=== PATIENT | male | born 1935 | race Caucasian/White ===

== ENCOUNTER 2016-05-31 16:53 | Emergency (ER) | payer OTHER ==
--- NOTE | 2016-05-31 18:03 | DIAGNOSTIC IMAGING REPORT ---
PROCEDURE: XR CHEST 1 VIEW INDICATION: ABDOMINAL PAIN TECHNIQUE: Portable AP view 05:30 p.m. COMPARISON: None available FINDINGS: Lungs are clear. Mild cardiomegaly. Pulmonary vasculature is normal. Previous sternotomy and cardiac surgery. IMPRESSION: 1. Mild cardiomegaly. Lungs clear.
--- NOTE | 2016-05-31 19:39 | DIAGNOSTIC IMAGING REPORT ---
PROCEDURE: CT ABD/PELVIS WITH CONTRAST CLINICAL INDICATION: Mid abdominal pain, initial encounter TECHNIQUE: 94 ml of Isovue 300 were injected intravenously and axial images were obtained of the entire abdomen and pelvis with sagittal and coronal reformations. COMPARISON: None. FINDINGS: ABDOMEN: Mild subpleural fibrosis in both lung bases. Sternotomy. Mild cardiomegaly. Pneumobilia and air in the gallbladder, likely from a recent ERCP. There are biliary and pancreatic stents in place. Dilated pancreatic duct measures 6 mm. Liver, pancreas, spleen and adrenal glands are normal. Bilateral renal cysts. Severe atherosclerosis of the aorta with a 3.2 cm infrarenal abdominal aortic aneurysm. Moderate stool. Thickening of the gastric wall. PELVIS: Normal appendix. Enlarged prostate (6 cm). Penile device in place. 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 Trace free fluid in the pelvis. No inflammatory changes. L3 and L5 laminectomies with bony fusion of the posterior elements. Severe degenerative changes of the spine. IMPRESSION: 1. Biliary and pancreatic duct stents 2. Pneumobilia and gallbladder air, likely from a recent ERCP 3. Gastric wall thickening. Consider gastritis. 4. 3.2 cm infrarenal abdominal aortic aneurysm 5. Trace free fluid the pelvis, etiology uncertain 6. Results discussed with Dr. Wheeler All CT scans at this facility use dose modulation, iterative reconstruction, and/or weight-based dosing when appropriate to reduce radiation dose to as low as reasonably achievable.
--- NOTE | 2016-05-31 20:39 | ED ORDER SUMMARY ---
..... Patient: VAL PEARCE OrderSheet [facility] VisitID: [id number] [address] [place] [address] 81y, M Registration Date/Time: 05/31/2016 ORDER SHEET Weight: 79.3 kg (stated) Allergies: Gabapentin, Nortriptyline GENERAL ORDERS: Chest 1V Urgent (17:05/31/2016 Tangela PETERSON) (Ack 17:30 Joe) (17:59 RCollier R.N.) Director Of Web Marketing (Continuous) (17:05/31/2016 Tangela PETERSON) (Ack 17:32 RCollier R.N.) (17:43 RCollier R.N.) CBC w Diff Urgent (:05/31/2016 Tangela PETERSON) (Ack 17:30 Joe) (17:58 RCollier R.N.) CMP Urgent (17:05/31/2016 Tangela PETERSON) (Ack 17:30 Joe) (17:58 RCollier R.N.) UA-Culture if indicated Urgent (17:05/31/2016 Tangela PETERSON) (Ack 17:30 Joe) (19:54 Deangelo R.N.) Amylase Urgent (17:05/31/2016 Tangela PETERSON) (Ack 17:30 Joe) (17:58 RCollier R.N.) Lipase Urgent (17:05/31/2016 Tangela PETERSON) (Ack 17:30 Joe) (17:58 RCollier R.N.) CPK Urgent (17:05/31/2016 Tangela PETERSON) (Ack 17:30 Joe) (17:58 RCollier R.N.) Troponin-I Urgent (:05/31/2016 Tangela PETERSON) (Ack 17:30 Joe) (17:59 RCollier R.N.) Pulse oximeter (:05/31/2016 Tangela PETERSON) (Ack 17:32 RCollier R.N.) (17:42 RCollier R.N.) EKG - ER Stat (:05/31/2016 Tangela PETERSON) (17:58 Riccardoier R.N.) Type & Screen Urgent (17:54 05/31/2016 Tangela PETERSON) (Ack 18:01 Joe) (18:13 RCollier R.N.) PT with INR Urgent (17:54 05/31/2016 Tangela PETERSON) (Ack 18:01 Joe) (18:13 RCollier R.N.) PTT Urgent (17:54 05/31/2016 Tangela PETERSON) (Ack 18:01 Joe) (18:13 BEEollier R.N.) CT Abd/Pel w Cont (Yes) (See report) (GI requests that we look for a retroperitoneal perforation) Urgent (18:56 05/31/2016 Tangela PETERSON) (Ack 19:13 AMcQuoid ER Tech1) (19:19 AMcQuoid ER Tech1) MEDICATION ORDERS: IV FLUIDS: IV Saline Lock (17:23 05/31/2016 Tangela PETERSON) (Ack 17:31 RCollier R.N.) IV Saline Lock (2 large bore IV sites) (17:53 05/31/2016 Tangela PETERSON) (Ack 17:58 RCollier R.N.) IV NS : initial bolus 500 mL (1000 mL/hr), then 125 mL/hr for 4h (NOW); Urgent (18:55 05/31/2016 Tangela PETERSON) (Ack 19:01 RCollier R.N.) (19:24 RCollier R.N.) ORDER SHEET NOTES: [Electronically signed by Belkys Laird R.N. (20:58 05/31/2016)] [Electronically signed by Nirav Wheeler MD (21:09 05/31/2016)] [Electronically locked/signed by Belkys Laird R.N. (20:58 05/31/2016)]
--- NOTE | 2016-05-31 20:39 | ED CLINICAL REPORT ---
Clinical Report - Physicians/Mid Levels [facility] [address] [place] [address] 05/31/2016 16:54 Patient: VAL PEARCE Time Seen: 17:07. Arrived- By private vehicle. Historian- patient. HISTORY OF PRESENT ILLNESS Chief Complaint: ABDOMINAL PAIN. At its maximum, severity described as 7 / 10. When seen in the E.D., severity described as 5 / 10. Modifying factors- worsened by food. Not relieved by anything. It is described as sharp and it is described as located in the upper abdomen and radiating to the upper back. This started 2 days ago - about 1 hour after his ERCP was completed and is still present. It was abrupt in onset and has been constant and waxing/waning. No nausea, loss of appetite, vomiting or diarrhea. (The patient underwent ERCP Saturday (2 days ago.) He underwent ampulectomy and had placement of pancreatic duct and common bile duct stents.). Similar symptoms previously: None. REVIEW OF SYSTEMS No chills, fever, sweats, calf pain or chest pain. No cough, difficulty breathing, palpitations, black stools or bloody stools. No constipation, diarrhea, nausea, vomiting or urinary problems. The patient has had pedal edema involving the right and left leg (chronically). It has been similar to previous symptoms. His reports that his most recent hemoglobin was 9.8. All systems otherwise negative, except as recorded above. PAST HISTORY [facility] [place] [facility] [place] Problems: Anemia. SVT. Palpitations. Cardiac stent. Hyperglycemia. Pancreatitis. Diabetes Mellitus. Hypertension. Gout. Back Pain. Additional Surgeries: Coronary Angioplasty. Coronary Artery Bypass Graft. ERCP. Medications: Latanoprost Ophthalmic (Solution 0.005 %). Tramadol HCL Oral 50 mg, as needed. Glucosamine Chondroitin Complx Oral 1 tablet, 2x daily. Flaxseed Oil Oral (Capsule 1200 mg) 1 capsule, daily. Senna Lax Oral (Tablet 8.6 mg) 1 tablet, 2x daily. PreserVision AREDS Oral 1 caplet, 2x daily. Creon Oral (Capsule Delayed Release Particles 6000 unit) 4 capsules, daily. TERAZOSIN HCl Oral. Acetaminophen Oral. Allopurinol Oral. AmLODIPine Besylate Oral. Aspirin Low Dose Oral. Atorvastatin Calcium Oral. Satya Mag Zinc +D3 Oral. Fish Oil Oral. Hydrocodone-Acetaminophen Oral. Lisinopril Oral. Magnesium Oral. MetFORMIN HCl Oral. Methocarbamol Oral. Multiple Vitamins Oral. Omeprazole Oral. Allergies: Gabapentin. Nortriptyline. SOCIAL HISTORY Smoker- current status unknown. No alcohol use. Is a local resident. He lives with spouse. Has good social support. FAMILY HISTORY Stroke in first-degree relative (mother). father due to a PE. ADDITIONAL NOTES The nursing notes have been reviewed. PHYSICAL EXAM Vital Signs: 05/31/2016 17:08 BP: 139/73. HR: 69. RR: 18. O2 saturation: 96%. Temp: 97.9 F. Pain level now: 7/10. Have been reviewed. Appearance: Alert. Eyes: Pupils equal, round and reactive to light. ENT: Pharynx normal. Neck: Normal inspection. Neck supple. CVS: 2/6 systolic murmur. Respiratory: No respiratory distress. Breath sounds normal. Abdomen: Soft. Mild tenderness in the upper abdomen. Bowel sounds normal. No organomegaly. No mass. Back: Normal inspection. No CVA tenderness. Skin: Skin warm and dry. Normal skin color. No rash. Normal skin turgor. Extremities: Bilateral mild pitting edema of the lower extremities. Extremities exhibit normal ROM. No calf tenderness. LABS, X-RAYS, AND EKG EKG: Rate: 67. First-degree atrioventricular block. RBBB. Q waves in lead V1 and V2. Left axis deviation. EKG unchanged when compared with prior EKG. (24 October 2015). The study has been independently viewed by me. Chest X-ray: (IMPRESSION: 1. Mild cardiomegaly. Lungs clear.). The X-rays were interpreted by the radiologist and contemporaneously by me. Abdominal CT: IMPRESSION: 1. Biliary and pancreatic duct stents 2. Pneumobilia and gallbladder air, likely from a recent ERCP 3. Gastric wall thickening. Consider gastritis. 4. 3.2 cm infrarenal abdominal aortic aneurysm 5. Trace free fluid the pelvis, etiology uncertain. The study was interpreted contemporaneously by me and discussed with the radiologist. Laboratory Tests: CBC w Diff: (SOL: 05/31/2016 17:39) ( [facility] [place] 05/31/2016 17:48) Final results Test Result Flag Units (Reference) WHITE BLOOD COUNT 7.5 K/uL (4.5-11.5) RED BLOOD COUNT 2.96 L M/uL (4.50-5.90) HEMOGLOBIN 9.5 L gm/dL (13.5-17.5) HEMATOCRIT 28.0 L % (41.0-53.0) MEAN CELL VOLUME 95 fL (80-100) MEAN CORPUSCULAR HGB 32 pg (26-34) MEAN CORPUSCULAR HGB CONC 34 g/dL (31-37) RED CELL DISTRIBUTION WIDTH 14.4 % (11.6-14.8) PLATELET COUNT 120 L K/uL (150-400) NEUTROPHIL % 74.5 % (50-75) LYMPH % 14.7 L % (25-40) MONO % 8.2 % (3-14) EOSINOPHIL % 2.3 % (0-4) BASOPHIL % 0.3 % (0-2) PT with INR: (SOL: 05/31/2016 17:39) ( [facility] [place] 05/31/2016 18:05) Final results Test Result Flag Units (Reference) INR 1.0 (0.8-1.2) Low Intensity Therapy: INR 1.5-2.0 PT range 18.5-23.1Mod.Intensity Therapy: INR 2.0-3.0 PT range 23.1-31.5High Intensity Therapy: INR 2.5-3.5 PT range 27.4-35.5High Intensity Therapy 2: INR 3.0-4.0 PT range 31.5-39.3 APTT 39 H SECONDS (24-34) CMP: (SOL: 05/31/2016 17:39) ( [facility] [place] 18:03) Final results Test Result Flag Units (Reference) GLUCOSE 129 H mg/dL (70-110) BUN 19 H mg/dL (7-18) CREATININE 1.1 mg/dL (0.6-1.3) Estimated GFR >60 mL/min Estimated GFR- >60 mL/min Note: Persistent reduction over 3 months in eGFR<60 mL/min/1.73 m2 defines CKD. Patients with eGFR values>=60 mL/min/1.73 m2 may also have CKD if evidence ofpersistent proteinuria. Additional information may be foundat www.kidney.org. SODIUM 142 mmol/L (136-145) POTASSIUM 4.1 mmol/L (3.5-5.1) CHLORIDE 107 mmol/L (98-107) CARBON DIOXIDE 26 mmol/L (21-32) CALCIUM 8.4 L mg/dL (8.5-10.1) TOTAL PROTEIN 6.5 g/dL (6.4-8.2) ALBUMIN 2.8 L g/dL (3.3-5.0) BILIRUBIN, TOTAL 0.4 mg/dL (0.0-1.0) ALKALINE PHOSPHATASE 62 U/L (46-116) AST (SGOT) 17 U/L (15-37) ALT (SGPT) 20 U/L (12-78) LIPASE 107 U/L (73-393) AMYLASE 74 U/L (25-115) CPK 57 U/L (24-260) TROPONIN I <0.05 ng/mL (0.00-1.5) TROPONIN REFERENCE RANGE:<0.1 NEGATIVE0.1-1.5 INDETERMINANT>1.5 POSITIVE Type & Screen: (SOL: 05/31/2016 18:07) ( MsgRcvd 05/31/2016 18:48) Final results Test Result Flag Units (Reference) PATIENT BLOOD TYPE B Positive ANTIBODY SCREEN NEGATIVE . PROGRESS AND PROCEDURES Course of Care: Patient is stable. Consult obtained from gastroenterology. Dr. Medina at the [facility] [place]. Case discussed. Phone consult only. Will see patient in the office. Patient/family counseled. Old medical records reviewed. Disposition: Discharged. Condition: stable. CLINICAL IMPRESSION Chronic anemia. Abdominal pain. Possible acute pancreatitis (subclinicalstatus post recent ERCP). INSTRUCTIONS No driving or operating machinery while taking medication. Drink plenty of fluids. Avoid alcohol and NSAIDS. NSAIDS include aspirin, ibuprofen (Advil) and naproxen (Aleve). Avoid fatty, fried/greasy, salty and spicy foods. Take clear liquids only Drink plenty of fluids. (Follow up with the floriculture teacher for your anemia as arranged by her primary care doctor as discussed). Warnings: Further evaluation is necessary. GENERAL WARNINGS: Return or contact your physician immediately if your condition worsens or changes unexpectedly, if not improving as expected, or if other problems arise. Your Current Medications: CONTINUE TAKING THE FOLLOWING MEDICATIONS: Acetaminophen Oral. Allopurinol Oral. AmLODIPine Besylate Oral. Aspirin Low Dose Oral. Atorvastatin Calcium Oral. Satya Mag Zinc +D3 Oral. Creon Oral : Capsule Delayed Release Particles 6000 unit, 4 capsules daily. Fish Oil Oral. Glucosamine Chondroitin Complx Oral : 1 tablet 2x daily. Hydrocodone-Acetaminophen Oral. Latanoprost Ophthalmic : Solution 0.005 %. Lisinopril Oral. Magnesium Oral. MetFORMIN HCl Oral. Methocarbamol Oral. Multiple Vitamins Oral. Omeprazole Oral. PreserVision AREDS Oral : 1 caplet 2x daily. Senna Lax Oral : Tablet 8.6 mg, 1 tablet 2x daily. TERAZOSIN HCl Oral. Tramadol HCL Oral : 50 mg, prn. Prescription Medications: Hydrocodone/APAP 5mg/325mg: take 1 to 2 orally every 6 hours as needed for pain. Dispense fifteen (15). No refills. Follow-up: Follow up with a receptionist/telephone operator call Dr. Medina's office tomorrow morning at [phone]. Ask to speak with her nurse and let them know how you are feeling. Schedule the first available follow-up appointment with them. tomorrow. Understanding of the discharge instructions verbalized by patient. (Electronically signed by Nirav Wheeler MD 05/31/2016 21:09)
--- NOTE | 2016-05-31 20:39 | ED NURSING NOTES ---
Clinical Report - Nurses [facility] [address] [place] [address] 05/31/2016 16:54 Patient: VAL PEARCE TRIAGE Triage time 1708. Acuity: LEVEL 3. Chief Complaint: ABDOMINAL PAIN. TALIB COMA SCORE: [place] Coma Scale: 15- eyes open spontaneously (4); best verbal response- oriented x 4 (5); best motor response- obeys commands (6). --17:15 Leann Márquez R.N. 17:08 05/31/16. BP: 139/73. HR: 69. RR: 18 (unlabored). O2 saturation: 96% on room air. Temp: 97.9 F (oral). Pain level now: 10/22. --17:15 Leann Márquez R.N. Weight: 79.3 kg stated. Height/Length: 74 inches Per Patient. BMI: 22.5. --17:08 Leann Márquez R.N. Medications Acetaminophen Oral. Allopurinol Oral. AmLODIPine Besylate Oral. Aspirin Low Dose Oral. Atorvastatin Calcium Oral. Satya Mag Zinc +D3 Oral. Fish Oil Oral. Hydrocodone-Acetaminophen Oral. Lisinopril Oral. Magnesium Oral. MetFORMIN HCl Oral. Methocarbamol Oral. Multiple Vitamins Oral. Omeprazole Oral. --17:14 Leann Márquez R.N. TERAZOSIN HCl Oral. --17:14 Leann Márquez R.N. Creon Oral (Capsule Delayed Release Particles 6000 unit) 4 capsules, daily. --17:28 Belkys Laird R.N. PreserVision AREDS Oral 1 caplet, 2x daily. --17:29 Belkys Laird R.N. Senna Lax Oral (Tablet 8.6 mg) 1 tablet, 2x daily. --17:29 Belkys Laird R.N. Flaxseed Oil Oral (Capsule 1200 mg) 1 capsule, daily. --17:30 Belkys Laird R.N. Glucosamine Chondroitin Complx Oral 1 tablet, 2x daily. --17:30 Belkys Laird R.N. Tramadol HCL Oral 50 mg, as needed. --17:30 Belkys Laird R.N. Latanoprost Ophthalmic (Solution 0.005 %). --17:31 Belkys Laird R.N. Allergies Gabapentin. Nortriptyline. --17:13 Leann Márquez R.N. Medication/allergy information source: the patient. --17:15 Leann Márquez R.N. History Arrived by private vehicle. Historian: patient. Accompanied by family. Primary physician (Dr. Medina). ( pt c/o intermittent abdominal pain since Saturday after his ERCP. pt had c/o nausea, but not at this time.). Onset. (2 days ago). 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 SOCIAL HX: Never smoker. No alcohol use or drug use. ABUSE ASSESSMENT: No report of abuse. FALL RISK ASSESSMENT: Fall risk assessment completed. No fall risk identified. NUTRITIONAL RISK ASSESSMENT: The nutritional risk assessment revealed no deficiencies. FUNCTIONAL ASSESSMENT: Functional assessment: no impairments noted. LEARNING NEEDS ASSESSMENT: The learning needs assessment revealed no barriers. SKIN INTEGRITY ASSESSMENT: Skin integrity risk assessment completed. No skin integrity risk identified. --17:15 Leann Márquez R.N. PROBLEMS: Palpitations. Cardiac stent. Hyperglycemia. Diabetes Mellitus. Hypertension. Gout. Back Pain. --17:14 Leann Márquez R.N. SVT. --17:18 Blekys Laird R.N. Pancreatitis [RuleOut]. --20:34 Nirav Wheeler MD The following entry was modified by Nirav Wheeler MD, 20:34 <<STRICKEN ENTRY-- Pancreatitis. --18:11 Leann Márquez R.N. --END STRIKE>>. ADDITIONAL SURGERIES: Coronary Angioplasty. Coronary Artery Bypass Graft. ERCP. --17:14 Leann Márquez R.N. Interventions ID band on patient. To treatment room. --17:15 Leann Márquez R.N. NURSING PROGRESS NOTES Patient gowned. Head of bed elevated. Two patient identifiers checked. Call light placed in reach. Side rails up x 1. Bed placed in lowest position. Brakes of bed on. Patient ready for evaluation. --17:15 Leann Márquez R.N. Care transferred and report received. --17:28 Belkys Laird R.N. 17:42 05/31/2016 Site #1 started via IV in the right antecubital space with an 20g angiocath, with aseptic technique and good blood return; one attempt. Blood drawn: rainbow set. Labeled in the presence of the patient and sent to the lab. Saline lock flushed with 10 mL saline. --17:42 Belkys Laird R.N. 18:07 05/31/2016 Site #2 started via IV in the left antecubital space with an 18g angiocath, with aseptic technique and good blood return; one attempt. Blood drawn. Labeled in the presence of the patient and sent to the lab. Saline lock flushed with 10 mL saline (blood band placed on pt, blood labeled per protocol. red & lavender tubes drawn at time of IV start.). --18:12 Belkys Laird R.N. EKG time: (17:50). EKG was performed by a tech and shown to the ED physician. --18:32 Macrina Avila 19:22 05/31/2016 Started bag #1 1000 mL IV Fluids IV NS (Saline); bolus of 500 mL over 30 minute(s) then at 125 mL/hr via site #1 via IV pump. Allergies verified and confirmed 5 rights. IV patency established. IV site checked: no pain, redness, or swelling. IV flushed thoroughly pre- and post-medication administration. --19:24 Belkys Laird R.N. Patient returned from CT by stretcher with tech. (1919). --19:25 Belkys Laird R.N. 19:25 05/31/16. BP: 164/67. HR: 64. RR: 15. O2 saturation: 97% on room air. Patel-Luna pain scale: 2/10. --19:26 Belkys Laird R.N. ( urinal placed at bedside, pt aware of need for urine.). --19:27 Belkys Laird R.N. 19:41 05/31/16. BP: 155/66. HR: 62. RR: 15. O2 saturation: 96%. --19:42 Belkys Laird R.N. Patient ID band checked for patient name and birthdate: patient confirmed urine collected; sample sent to lab. Specimen labeled in the presence of the patient (collected and sent by Jeff Aaron RN). --19:56 Belkys Laird R.N. 19:52 05/31/2016 IV Fluids IV NS via IV site #1 Rate Changed: bag #1 decreased to 125 mL/hr via IV pump. IV patency established. IV site checked: no pain, redness, or swelling. IV flushed thoroughly. Confirmed 5 Rights. --19:56 Belkys Laird R.N. DISPOSITION / DISCHARGE 20:42 05/31/16. BP: 167/70. HR: 61. RR: 15. O2 saturation: 98% on room air. --20:42 Belkys Laird R.N. 20:50 05/31/2016 Site #1 removed upon discharge. Catheter intact. Manual pressure and bandage applied. --20:56 Belkys Laird R.N. 20:51 05/31/2016 Site #2 removed upon discharge. Catheter intact. Manual pressure and bandage applied. --20:56 Belkys Laird R.N. Condition at departure: stable. No learning barriers present. Discharge instructions provided and reviewed with the patient and spouse. Reviewed medication(s) side effects information. Prescription(s) given to the patient (VICODIN. (pt refused Rx, asks me to shred it for him, states "I have that at home, I don't need more"). Rx placed in shred-it bin). Patient and spouse verbalized understanding. Written instructions provided in Persian. The patient was discharged home and accompanied by spouse. He left the Emergency Department ambulatory and via private vehicle. Spouse driving. --20:58 Belkys Laird R.N. 20:54 05/31/16. Temp: 98.6 F (oral). Patel-Luna pain scale: 2/10. --20:58 Belkys Laird R.N. Locked/Released at 05/31/2016 20:58 by Belkys Laird R.N.
--- NOTE | 2016-05-31 20:39 | ED ORDER SUMMARY ---
..... Patient: VAL PEARCE OrderSheet [facility] VisitID: [id number] [address] [place] [address] 81y, M Registration Date/Time: 05/31/2016 ORDER SHEET Weight: 79.3 kg (stated) Allergies: Gabapentin, Nortriptyline GENERAL ORDERS: Chest 1V Urgent (17:05/31/2016 Tangela PETERSON) (Ack 17:30 Joe) (17:59 RCollier R.N.) Bureau Director (Continuous) (17:05/31/2016 Tangela PETERSON) (Ack 17:32 RCollier R.N.) (17:43 RCollier R.N.) CBC w Diff Urgent (:05/31/2016 Tangela PETERSON) (Ack 17:30 Joe) (17:58 RCollier R.N.) CMP Urgent (17:05/31/2016 Tangela PETERSON) (Ack 17:30 Joe) (17:58 RCollier R.N.) UA-Culture if indicated Urgent (17:05/31/2016 Tangela PETERSON) (Ack 17:30 Joe) (19:54 Deangelo R.N.) Amylase Urgent (17:05/31/2016 Tangela PETERSON) (Ack 17:30 Joe) (17:58 RCollier R.N.) Lipase Urgent (17:05/31/2016 Tangela PETERSON) (Ack 17:30 Joe) (17:58 RCollier R.N.) CPK Urgent (17:05/31/2016 Tangela PETERSON) (Ack 17:30 Joe) (17:58 RCollier R.N.) Troponin-I Urgent (:05/31/2016 Tangela PETERSON) (Ack 17:30 Joe) (17:59 RCollier R.N.) Pulse oximeter (:05/31/2016 Tangela PETERSON) (Ack 17:32 RCollier R.N.) (17:42 RCollier R.N.) EKG - ER Stat (:05/31/2016 Tangela PETERSON) (17:58 Riccardoier R.N.) Type & Screen Urgent (17:54 05/31/2016 Tangela PEETRSON) (Ack 18:01 Joe) (18:13 RCollier R.N.) PT with INR Urgent (17:54 05/31/2016 Tangela PETERSON) (Ack 18:01 Joe) (18:13 RCollier R.N.) PTT Urgent (17:54 05/31/2016 Tangela PETERSON) (Ack 18:01 Joe) (18:13 BEEollier R.N.) CT Abd/Pel w Cont (Yes) (See report) (GI requests that we look for a retroperitoneal perforation) Urgent (18:56 05/31/2016 Tangela PETERSON) (Ack 19:13 AMcQuoid ER Tech1) (19:19 AMcQuoid ER Tech1) MEDICATION ORDERS: IV FLUIDS: IV Saline Lock (17:23 05/31/2016 Tangela PETERSON) (Ack 17:31 RCollier R.N.) IV Saline Lock (2 large bore IV sites) (17:53 05/31/2016 Tangela PETERSON) (Ack 17:58 RCollier R.N.) IV NS : initial bolus 500 mL (1000 mL/hr), then 125 mL/hr for 4h (NOW); Urgent (18:55 05/31/2016 Tangela PETERSON) (Ack 19:01 RCollier R.N.) (19:24 RCollier R.N.) ORDER SHEET NOTES: [Electronically signed by Belkys Laird R.N. (20:58 05/31/2016)] [Electronically signed by Nirav Wheeler MD (21:09 05/31/2016)] [Electronically locked/signed by Belkys Laird R.N. (20:58 05/31/2016)]
--- NOTE | 2016-05-31 20:39 | ED CLINICAL REPORT ---
Clinical Report - Physicians/Mid Levels [facility] [address] [place] [address] 05/31/2016 16:54 Patient: VAL PEARCE Time Seen: 17:07. Arrived- By private vehicle. Historian- patient. HISTORY OF PRESENT ILLNESS Chief Complaint: ABDOMINAL PAIN. At its maximum, severity described as 7 / 10. When seen in the E.D., severity described as 5 / 10. Modifying factors- worsened by food. Not relieved by anything. It is described as sharp and it is described as located in the upper abdomen and radiating to the upper back. This started 2 days ago - about 1 hour after his ERCP was completed and is still present. It was abrupt in onset and has been constant and waxing/waning. No nausea, loss of appetite, vomiting or diarrhea. (The patient underwent ERCP Saturday (2 days ago.) He underwent ampulectomy and had placement of pancreatic duct and common bile duct stents.). Similar symptoms previously: None. REVIEW OF SYSTEMS No chills, fever, sweats, calf pain or chest pain. No cough, difficulty breathing, palpitations, black stools or bloody stools. No constipation, diarrhea, nausea, vomiting or urinary problems. The patient has had pedal edema involving the right and left leg (chronically). It has been similar to previous symptoms. His reports that his most recent hemoglobin was 9.8. All systems otherwise negative, except as recorded above. PAST H[facility]ORY [facility] [place] [facility] [place] [place] [facility] [place]. Problems: Anemia. SVT. Palpitations. Cardiac stent. Hyperglycemia. Pancreatitis. Diabetes Mellitus. Hypertension. Gout. Back Pain. Additional Surgeries: Coronary Angioplasty. Coronary Artery Bypass Graft. ERCP. Medications: Latanoprost Ophthalmic (Solution 0.005 %). Tramadol HCL Oral 50 mg, as needed. Glucosamine Chondroitin Complx Oral 1 tablet, 2x daily. Flaxseed Oil Oral (Capsule 1200 mg) 1 capsule, daily. Senna Lax Oral (Tablet 8.6 mg) 1 tablet, 2x daily. PreserVision AREDS Oral 1 caplet, 2x daily. Creon Oral (Capsule Delayed Release Particles 6000 unit) 4 capsules, daily. TERAZOSIN HCl Oral. Acetaminophen Oral. Allopurinol Oral. AmLODIPine Besylate Oral. Aspirin Low Dose Oral. Atorvastatin Calcium Oral. Satya Mag Zinc +D3 Oral. Fish Oil Oral. Hydrocodone-Acetaminophen Oral. Lisinopril Oral. Magnesium Oral. MetFORMIN HCl Oral. Methocarbamol Oral. Multiple Vitamins Oral. Omeprazole Oral. Allergies: Gabapentin. Nortriptyline. SOCIAL HISTORY Smoker- current status unknown. No alcohol use. Is a local resident. He lives with spouse. Has good social support. FAMILY HISTORY Stroke in first-degree relative (mother). father due to a PE. ADDITIONAL NOTES The nursing notes have been reviewed. PHYSICAL EXAM Vital Signs: 05/31/2016 17:08 BP: 139/73. HR: 69. RR: 18. O2 saturation: 96%. Temp: 97.9 F. Pain level now: 7/10. Have been reviewed. Appearance: Alert. Eyes: Pupils equal, round and reactive to light. ENT: Pharynx normal. Neck: Normal inspection. Neck supple. CVS: 2/6 systolic murmur. Respiratory: No respiratory distress. Breath sounds normal. Abdomen: Soft. Mild tenderness in the upper abdomen. Bowel sounds normal. No organomegaly. No mass. Back: Normal inspection. No CVA tenderness. Skin: Skin warm and dry. Normal skin color. No rash. Normal skin turgor. Extremities: Bilateral mild pitting edema of the lower extremities. Extremities exhibit normal ROM. No calf tenderness. LABS, X-RAYS, AND EKG EKG: Rate: 67. First-degree atrioventricular block. RBBB. Q waves in lead V1 and V2. Left axis deviation. EKG unchanged when compared with prior EKG. (24 October 2015). The study has been independently viewed by me. Chest X-ray: (IMPRESSION: 1. Mild cardiomegaly. Lungs clear.). The X-rays were interpreted by the radiologist and contemporaneously by me. Abdominal CT: IMPRESSION: 1. Biliary and pancreatic duct stents 2. Pneumobilia and gallbladder air, likely from a recent ERCP 3. Gastric wall thickening. Consider gastritis. 4. 3.2 cm infrarenal abdominal aortic aneurysm 5. Trace free fluid the pelvis, etiology uncertain. The study was interpreted contemporaneously by me and discussed with the radiologist. Laboratory Tests: CBC w Diff: (SOL: 05/31/2016 17:39) ( [facility] 05/31/2016 17:48) Final results Test Result Flag Units (Reference) WHITE BLOOD COUNT 7.5 K/uL (4.5-11.5) RED BLOOD COUNT 2.96 L M/uL (4.50-5.90) HEMOGLOBIN 9.5 L gm/dL (13.5-17.5) HEMATOCRIT 28.0 L % (41.0-53.0) MEAN CELL VOLUME 95 fL (80-100) MEAN CORPUSCULAR HGB 32 pg (26-34) MEAN CORPUSCULAR HGB CONC 34 g/dL (31-37) RED CELL DISTRIBUTION WIDTH 14.4 % (11.6-14.8) PLATELET COUNT 120 L K/uL (150-400) NEUTROPHIL % 74.5 % (50-75) LYMPH % 14.7 L % (25-40) MONO % 8.2 % (3-14) EOSINOPHIL % 2.3 % (0-4) BASOPHIL % 0.3 % (0-2) PT with INR: (SOL: 05/31/2016 17:39) ( [facility] 05/31/2016 18:05) Final results Test Result Flag Units (Reference) INR 1.0 (0.8-1.2) Low Intensity Therapy: INR 1.5-2.0 PT range 18.5-23.1Mod.Intensity Therapy: INR 2.0-3.0 PT range 23.1-31.5High Intensity Therapy: INR 2.5-3.5 PT range 27.4-35.5High Intensity Therapy 2: INR 3.0-4.0 PT range 31.5-39.3 APTT 39 H SECONDS (24-34) CMP: (SOL: 05/31/2016 17:39) ( [facility] 05/31/2016 18:03) Final results Test Result Flag Units (Reference) GLUCOSE 129 H mg/dL (70-110) BUN 19 H mg/dL (7-18) CREATININE 1.1 mg/dL (0.6-1.3) Estimated GFR >60 mL/min Estimated GFR- >60 mL/min Note: Persistent reduction over 3 months in eGFR<60 mL/min/1.73 m2 defines CKD. Patients with eGFR values>=60 mL/min/1.73 m2 may also have CKD if evidence ofpersistent proteinuria. Additional information may be foundat www.[email or web address].org. SODIUM 142 mmol/L (136-145) POTASSIUM 4.1 mmol/L (3.5-5.1) CHLORIDE 107 mmol/L (98-107) CARBON DIOXIDE 26 mmol/L (21-32) CALCIUM 8.4 L mg/dL (8.5-10.1) TOTAL PROTEIN 6.5 g/dL (6.4-8.2) ALBUMIN 2.8 L g/dL (3.3-5.0) BILIRUBIN, TOTAL 0.4 mg/dL (0.0-1.0) ALKALINE PHOSPHATASE 62 U/L (46-116) AST (SGOT) 17 U/L (15-37) ALT (SGPT) 20 U/L (12-78) LIPASE 107 U/L (73-393) AMYLASE 74 U/L (25-115) CPK 57 U/L (24-260) TROPONIN I <0.05 ng/mL (0.00-1.5) TROPONIN REFERENCE RANGE:<0.1 NEGATIVE0.1-1.5 INDETERMINANT>1.5 POSITIVE Type & Screen: (SOL: 05/31/2016 18:07) ( [facility] 05/31/2016 18:48) Final results Test Result Flag Units (Reference) PATIENT BLOOD TYPE B Positive ANTIBODY SCREEN NEGATIVE . PROGRESS AND PROCEDURES Course of Care: Patient is stable. Consult obtained from gastroenterology. Dr. Medina at the [facility] [place]. Case discussed. Phone consult only. Will see patient in the office. Patient/family counseled. Old medical records reviewed. Disposition: Discharged. Condition: stable. CLINICAL IMPRESSION Chronic anemia. Abdominal pain. Possible acute pancreatitis (subclinicalstatus post recent ERCP). INSTRUCTIONS No driving or operating machinery while taking medication. Drink plenty of fluids. Avoid alcohol and NSAIDS. NSAIDS include aspirin, ibuprofen (Advil) and naproxen (Aleve). Avoid fatty, fried/greasy, salty and spicy foods. Take clear liquids only Drink plenty of fluids. (Follow up with the laborer bituminous paving for your anemia as arranged by her primary care doctor as discussed). Warnings: Further evaluation is necessary. GENERAL WARNINGS: Return or contact your physician immediately if your condition worsens or changes unexpectedly, if not improving as expected, or if other problems arise. Your Current Medications: CONTINUE TAKING THE FOLLOWING MEDICATIONS: Acetaminophen Oral. Allopurinol Oral. AmLODIPine Besylate Oral. Aspirin Low Dose Oral. Atorvastatin Calcium Oral. Satya Mag Zinc +D3 Oral. Creon Oral : Capsule Delayed Release Particles 6000 unit, 4 capsules daily. Fish Oil Oral. Glucosamine Chondroitin Complx Oral : 1 tablet 2x daily. Hydrocodone-Acetaminophen Oral. Latanoprost Ophthalmic : Solution 0.005 %. Lisinopril Oral. Magnesium Oral. MetFORMIN HCl Oral. Methocarbamol Oral. Multiple Vitamins Oral. Omeprazole Oral. PreserVision AREDS Oral : 1 caplet 2x daily. Senna Lax Oral : Tablet 8.6 mg, 1 tablet 2x daily. TERAZOSIN HCl Oral. Tramadol HCL Oral : 50 mg, prn. Prescription Medications: Hydrocodone/APAP 5mg/325mg: take 1 to 2 orally every 6 hours as needed for pain. Dispense fifteen (15). No refills. Follow-up: Follow up with a flat knitter helper call Dr. Medina's office tomorrow morning at [phone]. Ask to speak with her nurse and let them know how you are feeling. Schedule the first available follow-up appointment with them. tomorrow. Understanding of the discharge instructions verbalized by patient. (Electronically signed by Nirav Wheeler MD 05/31/2016 21:09)
--- NOTE | 2016-05-31 21:09 | ED DISCHARGE INSTRUCTIONS ---
Patient: VAL PEARCE General Instructions Merged With [facility] VisitID: [id number] [place] [address] 81y, M Registration Date/Time: 05/31/2016 Chronic anemia. Abdominal pain. INSTRUCTIONS No driving or operating machinery while taking medication. Drink plenty of fluids. Avoid alcohol and NSAIDS. NSAIDS include aspirin, ibuprofen (Advil) and naproxen (Aleve). Avoid fatty, fried/greasy, salty and spicy foods. Take clear liquids only Drink plenty of fluids. (Follow up with the piece jobber for your anemia as arranged by her primary care doctor as discussed). Warnings: Further evaluation is necessary. GENERAL WARNINGS: Return or contact your physician immediately if your condition worsens or changes unexpectedly, if not improving as expected, or if other problems arise. Your Current Medications: CONTINUE TAKING THE FOLLOWING MEDICATIONS: Acetaminophen Oral. Allopurinol Oral. AmLODIPine Besylate Oral. Aspirin Low Dose Oral. Atorvastatin Calcium Oral. Satya Mag Zinc +D3 Oral. Creon Oral : Capsule Delayed Release Particles 6000 unit, 4 capsules daily. Fish Oil Oral. Glucosamine Chondroitin Complx Oral : 1 tablet 2x daily. Hydrocodone-Acetaminophen Oral. Latanoprost Ophthalmic : Solution 0.005 %. Lisinopril Oral. Magnesium Oral. MetFORMIN HCl Oral. Methocarbamol Oral. Multiple Vitamins Oral. Omeprazole Oral. PreserVision AREDS Oral : 1 caplet 2x daily. Senna Lax Oral : Tablet 8.6 mg, 1 tablet 2x daily. TERAZOSIN HCl Oral. Tramadol HCL Oral : 50 mg, prn. Prescription Medications: Hydrocodone/APAP 5mg/325mg: take 1 to 2 orally every 6 hours as needed for pain. Dispense fifteen (15). No refills. Follow-up: Follow up with a blood bank laboratory technician call Dr. Medina's office tomorrow morning at [phone]. Ask to speak with her nurse and let them know how you are feeling. Schedule the first available follow-up appointment with them. tomorrow. Understanding of the discharge instructions verbalized by patient. ADDITIONAL INFORMATION Abdominal Pain,Uncertain Cause [Male] Based on your visit today, the exact cause of your abdominalpain is not clear. Your exam and tests do not indicate a dangerous cause at this time. However, the signs of a serious problem may take more time to appear. Although your evaluation was reassuring today, sometimes early in the course of many conditions, exam and lab tests can appear normal. Therefore, it is important for you to watch for any new symptoms or worsening of your condition. Causes It may not be obvious what caused your symptoms. Pay attention to things that do seem to make your symptoms worse or better and discuss this with your doctor when you follow up. Diagnosis The evaluation of abdominal pain in the emergency department may onlyrequire an exam by the doctor or it may include blood, urine or imaging studies, depending on many factors. Sometimes exams and tests can identify a cause but in many cases, a clear cause is not found. Further testing at follow up visits may help to suggest a clear diagnosis. Home Care Rest as much as possible until your next exam. Try to avoid any medications (unless otherwise directed by your doctor), foods, activities, or other factors that you may have contributed to your symptoms. Try to eat foods that you know that you have tolerated well in the past. Certain diets may be recommended for some conditions that cause abdominal pain. However, since the cause of your symptoms may not be clear, discuss your diet more with your primary care provider or specialist for further recommendations. Eating several small meals per day as opposed to 2 or 3 larger meals may help. Monitor closely for anything that may make your symptoms worse or better. Pay close attention to symptoms below that may indicate worsening of your condition. Follow Up and Precautions See your doctoras instructed or sooneror if your symptoms are not improving.In some cases, you may need more testing. When to Seek Medical Attention Contact your doctor or see medical attention ifany of the following occur: Pain is becoming worse You are unable to take your medications due to excessive vomiting Swelling of the abdomen Fever of 100.4F (38C) or higher, or as directed by your health care provider Blood in vomit or bowel movements (dark red or black color) Jaundice (yellow color of eyes and skin) New onset of weakness, dizziness or fainting New onset of chest, arm, back, neck or jaw pain Pancreatitis The pancreas is an organ in the left upper abdomen that secretes digestive juices into the stomach. Pancreatitis is an inflammation of the pancreas. This may occur for various causes including heavy alcohol use, gall stone blockage of the outflow duct from the pancreas, certain medicines and viral illness. Sometimes the cause of pancreatitis cannot be found. Moderate to severe illness requires being treated in the hospital. Milder attacks of pancreatitis can be treated at home. Home Care: 1) Absolutely NO ALCOHOL. 2) Rest in bed or sit up in a chair until you feel better. 3) Eat small more frequent meals rather than a few large meals each day. 4) Follow a high protein, high carbohydrate, low fat diet. 5) If you were given medicine for pain or vomiting, take it as prescribed. Follow Up with your doctor or as directed by our staff for further evaluation. Get Prompt Medical Attention if any of the following occur: -- Continued or worsening pain in the abdomen -- Repeated vomiting: unable to keep down liquids -- Dizziness, weakness or fainting -- Vomiting blood or blood in the stool (black or red color) -- Fever over 100.4 F (38.0 C) -- Severe muscle cramps or seizure -- Trouble breathing or fast breathing (over 25 breaths/minute) -- Jaundice (yellow color of the skin or eyes) Clear Liquid Diet Clear liquids are any liquid that you can see through as well as those that are very easy to digest. This is used while the body is recovering from irritation or infection of the stomach or intestinal tract. It may also be used before special procedures or surgery. This diet is to be used no more than three days. You may include the following items. Adults Adults should drink a total of 23 quarts of liquid per day. It may be easier to drink small frequent servings rather than a few large ones. Liquids can include: Fruit juices.Strained orange juice or lemonade (no pulp), apple, grape and cranberry juice, clear fruit drinks, sports drinks Beverages.Sport drinks, sodas, mineral water (plain or flavored), tea, black coffee, liquid gelatin (add twice the recommended amount of water) Soups.Clear broth, consomm, bouillon Desserts.Plain gelatin, popsicles, fruit juice bars Children Over 2 years old The following liquids are acceptable for children over age 2: Fruit juices.Strained orange juice or lemonade (no pulp), apple, grape and cranberry juice, clear fruit drinks Beverages. Sports drinks, sodas, mineral water (plain or flavored), tea, liquid gelatin (add twice the recommended amount of water) Soups. Clear broth, consomm, bouillon Desserts. Plain gelatin, popsicles, fruit juice bars Children under 2 years old Oral rehydration fluids such are available at drug stores and most grocery stores without a prescription. Clear Liquid Diet Clear liquids are any liquid that you can see through as well as those that are very easy to digest. This is used while the body is recovering from irritation or infection of the stomach or intestinal tract. It may also be used before special procedures or surgery. This diet is to be used no more than three days. You may include the following items. Adults Adults should drink a total of 23 quarts of liquid per day. It may be easier to drink small frequent servings rather than a few large ones. Liquids can include: Fruit juices.Strained orange juice or lemonade (no pulp), apple, grape and cranberry juice, clear fruit drinks, sports drinks Beverages.Sport drinks, sodas, mineral water (plain or flavored), tea, black coffee, liquid gelatin (add twice the recommended amount of water) Soups.Clear broth, consomm, bouillon Desserts.Plain gelatin, popsicles, fruit juice bars Children Over 2 years old The following liquids are acceptable for children over age 2: Fruit juices.Strained orange juice or lemonade (no pulp), apple, grape and cranberry juice, clear fruit drinks Beverages. Sports drinks, sodas, mineral water (plain or flavored), tea, liquid gelatin (add twice the recommended amount of water) Soups. Clear broth, consomm, bouillon Desserts. Plain gelatin, popsicles, fruit juice bars Children under 2 years old Oral rehydration fluids such are available at drug stores and most grocery stores without a prescription. Hydrocodone Bitartrate, Acetaminophen Oral tablet What is this medicine? ACETAMINOPHEN; HYDROCODONE (a set a SO patricia fen; natan droe KOE done) is a pain reliever. It is used to treat mild to moderate pain. How should I use this medicine? Take this medicine by mouth. Swallow it with a full glass of water. Follow the directions on the prescription label. If the medicine upsets your stomach, take the medicine with food or milk. Do not take more than you are told to take. Talk to your utility operator yarn regarding the use of this medicine in children. This medicine is not approved for use in children. What side effects may I notice from receiving this medicine? Side effects that you should report to your doctor or health vocational childcare teacher as soon as possible: allergic reactions like skin rash, itching or hives, swelling of the face, lips, or tongue breathing problems confusion feeling faint or lightheaded, falls stomach pain yellowing of the eyes or skin Side effects that usually do not require medical attention (report to your doctor or health vocational childcare teacher if they continue or are bothersome): nausea, vomiting stomach upset What may interact with this medicine? alcohol antihistamines isoniazid medicines for depression, anxiety, or psychotic disturbances medicines for sleep muscle relaxants naltrexone narcotic medicines (opiates) for pain phenobarbital ritonavir tramadol What if I miss a dose? If you miss a dose, take it as soon as you can. If it is almost time for your next dose, take only that dose. Do not take double or extra doses. Where should I keep my medicine? Keep out of the reach of children. This medicine can be abused. Keep your medicine in a safe place to protect it from theft. Do not share this medicine with anyone. Selling or giving away this medicine is dangerous and against the law. Store at room temperature between 15 and 30 degrees C (59 and 86 degrees F). Protect from light. Keep container tightly closed. Throw away any unused medicine after the expiration date. Discard unused medicine and used packaging carefully. Pets and children can be harmed if they find used or lost packages. What should I tell my health care provider before I take this medicine? They need to know if you have any of these conditions: brain tumor Crohn's disease, inflammatory bowel disease, or ulcerative colitis drink more than 3 alcohol-containing drinks per day drug abuse or addiction head injury heart or circulation problems kidney disease or problems going to the bathroom liver disease lung disease, asthma, or breathing problems an unusual or allergic reaction to acetaminophen, hydrocodone, other opioid analgesics, other medicines, foods, dyes, or preservatives or trying to get breast-feeding What should I watch for while using this medicine? Tell your doctor or health vocational childcare teacher if your pain does not go away, if it gets worse, or if you have new or a different type of pain. You may develop tolerance to the medicine. Tolerance means that you will need a higher dose of the medicine for pain relief. Tolerance is normal and is expected if you take the medicine for a long time. Do not suddenly stop taking your medicine because you may develop a severe reaction. Your body becomes used to the medicine. This does NOT mean you are addicted. Addiction is a behavior related to getting and using a drug for a non-medical reason. If you have pain, you have a medical reason to take pain medicine. Your doctor will tell you how much medicine to take. If your doctor wants you to stop the medicine, the dose will be slowly lowered over time to avoid any side effects. You may get drowsy or dizzy when you first start taking the medicine or change doses. Do not drive, use machinery, or do anything that may be dangerous until you know how the medicine affects you. Stand or sit up slowly. There are different types of narcotic medicines (opiates) for pain. If you take more than one type at the same time, you may have more side effects. Give your health care provider a list of all medicines you use. Your doctor will tell you how much medicine to take. Do not take more medicine than directed. Call emergency for help if you have problems breathing. The medicine will cause constipation. Try to have a bowel movement at least every 2 to 3 days. If you do not have a bowel movement for 3 days, call your doctor or health vocational childcare teacher. Too much acetaminophen can be very dangerous. Do not take Tylenol (acetaminophen) or medicines that contain acetaminophen with this medicine. Many non-prescription medicines contain acetaminophen. Always read the labels carefully. You have been given the following additional information: Abdominal Pain, Unknown Cause, (Male) Pancreatitis Diet, Clear Liquid Diet, Clear Liquid Hydrocodone Bitartrate, Acetaminophen Oral tablet No driving or operating machinery while taking medication. (Electronically signed by Nirav Wheeler MD 05/31/2016 21:09)
--- NOTE | 2016-05-31 21:09 | ED MAR SUMMARY ---
..... Medication Administration Record [facility] [address] [place] [address] Patient: VAL PEARCE Visit ID: [id number] 81y, M Weight: 79.3 kg Height/Length: 74 in BMI: 22.5 ALLERGIES: Gabapentin, Nortriptyline Start 19:22 05/31/2016 Belkys Laird, RNicoNNico Medication Administered: IV NS (SALINE), Dose: IV Fluids, Rate: 125 mL/hr, Bolus: 500 mL over 30 minute(s), Dispensed: 1000 mL bag, Site: #1 right AC. Medication Ordered: IV NS : initial bolus 500 mL (1000 mL/hr), then 125 mL/hr for 4h (NOW); Urgent.
--- NOTE | 2016-05-31 21:09 | ED MED RECONCILIATION SUMMARY ---
Patient: VAL PEARCE Medication Reconciliation Report [facility] VisitID: [id number] [address] [place] [address] 81y, M Registration Date/Time: 05/31/2016 Weight: 79.3 kg Height/Length: 74 in. BMI: 22.5 ALLERGIES: Gabapentin, Nortriptyline The patient's Home Medications are listed below: CONTINUE TAKING THE FOLLOWING MEDICATIONS: Acetaminophen Oral Allopurinol Oral AmLODIPine Besylate Oral Aspirin Low Dose Oral Atorvastatin Calcium Oral Satya Mag Zinc +D3 Oral Creon Oral (6000 unit) 4 capsules, daily Fish Oil Oral Glucosamine Chondroitin Complx Oral 1 tablet, 2x daily Hydrocodone-Acetaminophen Oral Latanoprost Ophthalmic (0.005 %) Lisinopril Oral Magnesium Oral MetFORMIN HCl Oral Methocarbamol Oral Multiple Vitamins Oral Omeprazole Oral PreserVision AREDS Oral 1 caplet, 2x daily Senna Lax Oral (8.6 mg) 1 tablet, 2x daily TERAZOSIN HCl Oral Tramadol HCL Oral 50 mg THE FOLLOWING MEDICATIONS NEED TO BE RECONCILED: Flaxseed Oil Oral (1200 mg) 1 capsule, daily The source(s) of the original Home Medication information: patient The following Medications were given to the patient in the Emergency Department: IV NS IV Fluids bolus 500 mL over 30 minute(s), then 125 mL/hr, administered: 05/31/2016 7:22:00 PM The following Medications were prescribed to the patient: Hydrocodone/APAP 5mg/325mg: take 1 to 2 orally every 6 hours as needed for pain. Dispense fifteen (15). No refills. -- Nirav Wheeler MD
--- NOTE | 2016-05-31 21:09 | ED MAR SUMMARY ---
..... Medication Administration Record [facility] [address] [place] [address] Patient: VAL PEARCE Visit ID: [id number] 81y, M Weight: 79.3 kg Height/Length: 74 in BMI: 22.5 ALLERGIES: Gabapentin, Nortriptyline Start 19:22 05/31/2016 Belkys Laird, RNicoNNico Medication Administered: IV NS (SALINE), Dose: IV Fluids, Rate: 125 mL/hr, Bolus: 500 mL over 30 minute(s), Dispensed: 1000 mL bag, Site: #1 right AC. Medication Ordered: IV NS : initial bolus 500 mL (1000 mL/hr), then 125 mL/hr for 4h (NOW); Urgent.
--- NOTE | 2016-05-31 21:09 | ED MED RECONCILIATION SUMMARY ---
Patient: VAL PEARCE Medication Reconciliation Report [facility] VisitID: [id number] [address] [place] [address] 81y, M Registration Date/Time: 05/31/2016 Weight: 79.3 kg Height/Length: 74 in. BMI: 22.5 ALLERGIES: Gabapentin, Nortriptyline The patient's Home Medications are listed below: CONTINUE TAKING THE FOLLOWING MEDICATIONS: Acetaminophen Oral Allopurinol Oral AmLODIPine Besylate Oral Aspirin Low Dose Oral Atorvastatin Calcium Oral Satya Mag Zinc +D3 Oral Creon Oral (6000 unit) 4 capsules, daily Fish Oil Oral Glucosamine Chondroitin Complx Oral 1 tablet, 2x daily Hydrocodone-Acetaminophen Oral Latanoprost Ophthalmic (0.005 %) Lisinopril Oral Magnesium Oral MetFORMIN HCl Oral Methocarbamol Oral Multiple Vitamins Oral Omeprazole Oral PreserVision AREDS Oral 1 caplet, 2x daily Senna Lax Oral (8.6 mg) 1 tablet, 2x daily TERAZOSIN HCl Oral Tramadol HCL Oral 50 mg THE FOLLOWING MEDICATIONS NEED TO BE RECONCILED: Flaxseed Oil Oral (1200 mg) 1 capsule, daily The source(s) of the original Home Medication information: patient The following Medications were given to the patient in the Emergency Department: IV NS IV Fluids bolus 500 mL over 30 minute(s), then 125 mL/hr, administered: 05/31/2016 7:22:00 PM The following Medications were prescribed to the patient: Hydrocodone/APAP 5mg/325mg: take 1 to 2 orally every 6 hours as needed for pain. Dispense fifteen (15). No refills. -- Nirav Wheeler MD
== END 2016-05-31 20:50 | disposition home or self-care (01) ==
LOC: ED SRH 16:53
DX: R10.10 Upper abdominal pain, unspecified (principal); D64.9 Anemia, unspecified; E11.9 Type 2 diabetes mellitus without complications; I10 Essential (primary) hypertension; Z79.84 Long term (current) use of oral hypoglycemic drugs; Z79.82 Long term (current) use of aspirin; Z79.899 Other long term (current) drug therapy
CPT/HCPCS: 90001; 90004; 90100; 90155; 90616; 91004; 92235; 92530; 92610; 94001; 94060; 95059

== ENCOUNTER 2016-07-29 11:35 | Inpatient (IN) | payer OTHER ==
[~2016-07-29] VITALS: Ht 188 cm; Wt 79.0 kg
--- NOTE | 2016-07-29 13:56 | DIAGNOSTIC IMAGING REPORT ---
PROCEDURE: XR ABD SERIES 2V ABD/1V CHEST INDICATION: Mid right abdominal pain. Recent ERCP with stent. TECHNIQUE: AP supine and upright views of the abdomen with single view of the chest. COMPARISON: Compared to chest x-ray and CT abdomen and pelvis on 05/31/2016. FINDINGS: ABDOMEN: Moderate stool throughout the colon. Small bowel pattern is normal. No evidence of free air. Pancreatic biliary stent in position. Marked degenerative change of the lumbar spine. CHEST: Mild to moderate parenchymal scarring in the right upper lung and left lung base. Mild cardiomegaly. Status post coronary artery bypass graft. Mediastinum is normal. Thorax is unchanged IMPRESSION: 1. Moderate stool throughout the colon. Consider obstipation. 2. Pancreatic biliary stent in position. 3. Otherwise negative abdomen. 4. Status post coronary artery bypass graft. 5. Otherwise negative chest.
--- NOTE | 2016-07-29 17:46 | DIAGNOSTIC IMAGING REPORT ---
PROCEDURE: US ABDOMEN ULTRASOUND-LIMITED INDICATION: Right abdominal pain. Pancreatic stent in position. TECHNIQUE: Koenig scale and color Doppler sonographic images of the abdomen were obtained. COMPARISON: None. FINDINGS: Gallbladder is moderately distended, measuring 11.5 cm in length (chronic). No evidence of gallstones. Common duct is mildly prominent (8 mm). No evidence of intrahepatic ductal dilation. Portions of the liver and right kidney are seen, and are within normal limits (small right renal cyst). Pancreas is obscured by bowel gas. Marked calcified atheromatous changes of the abdominal aorta. IMPRESSION: 1. Mild chronic distention of the gallbladder. No evidence of gallstones. 2. Findings discussed with Dr. Nirav Wheeler
--- NOTE | 2016-07-29 19:31 | DIAGNOSTIC IMAGING REPORT ---
PROCEDURE: CTA ABDOMEN PELVIS INDICATION: Abdominal and pelvic pain. TECHNIQUE: 140 ml of Isovue 370 injected intravenously and axial images were obtained through the entire abdomen and pelvis with 3D MIP sagittal and coronal reformations. COMPARISON: Compared to CT abdomen and pelvis (05/31/2016) and abdominal ultrasound earlier today (07/29/2016). FINDINGS: Marked calcified atheromatous changes of the vessels obscures some of the detail. ABDOMEN AORTA AND MESENTERIC VESSELS: There are marked calcified atheromatous changes of the abdominal aorta with mild aneurysmal dilation of the mid abdominal aorta (3.1 cm). There are marked calcified atheromatous changes of the celiac origin with probable 70% narrowing. There moderate calcified atheromatous changes of the superior mesenteric artery, but little evidence of significant stenosis. There are marked calcified atheromatous changes of the splenic artery. There is a 60% stenosis at the origin of the left renal artery. The 40% stenosis at the origin of the right renal artery. ABDOMEN: Interim removal of common duct stent with repositioning of pancreatic duct stent (may protrude through mid pancreatic duct). There is a 2.7 cm low density fluid collection in the region of the caudate lobe (new since prior study). Gallbladder, liver, and spleen are normal. There are chronic atrophic change of the pancreas. Kidneys are normal (bilateral simple renal cysts). Moderate stool throughout the colon. Small bowel pattern is normal. Appendix is not clearly identified. Marked degenerative changes of the lumbar spine with fusion of the lumbosacral junction. PELVIC VESSELS: There are marked calcified atheromatous changes of the iliac vessels with areas of 50-80% stenoses in the right iliac arteries and 80-90% stenoses in the left external iliac artery. 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 PELVIS: There is a penile prosthesis reservoir in the right pelvis. Moderate enlargement prostate (6 cm) with probable prior TURP. Moderate stool in the colon and rectum. IMPRESSION: AORTA AND PELVIC VESSELS: 1. 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 2. Marked calcified atheromatous change of the celiac origin with probable 70% narrowing. 3. Mild calcified atheromatous changes of the superior mesenteric artery. 4. Findings suggest a 40% stenosis of the right renal artery with 60% stenosis of the left renal artery. 5. Marked calcified atheromatous changes of the iliac vessels with 50 - 80% stenoses in the right iliac arteries and 80-90% stenoses in the left iliac vessels. 6. 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 7. Vascular evaluation is partially compromised due to marked calcified atheromatous changes. ABDOMEN AND PELVIS: 1. Interval removal of common duct stent. There is a 2.7 cm low density area in the region of the caudate lobe which could represent a residual or developing fluid collection (may be a sequela of stent removal). Developing abscess or necrotic mass might also be considered (less likely). 2. Interim repositioning of pancreatic duct stent (proximal stent protrudes through the mid pancreatic duct - - but no evidence of peripancreatic fluid collection). 3. Moderate stool throughout the colon. Consider obstipation. 4. Moderate enlargement prostate (6 cm). 5. Penile prosthesis with pelvic reservoir. Findings discussed with Dr. Nirav Wheeler. All CT scans at this facility use dose modulation, iterative reconstruction, and/or weight-based dosing when appropriate to reduce radiation dose to as low as reasonably achievable.
--- NOTE | 2016-07-29 23:03 | ED CLINICAL REPORT ---
Clinical Report - Physicians/Mid Levels [address] [place] [address] 07/29/2016 11:35 Patient: VAL PEARCE Time Seen: 11:45. Arrived- By private vehicle. Historian- patient. HISTORY OF PRESENT ILLNESS Chief Complaint: ABDOMINAL PAIN. This started about 4 days ago and is still present. It was gradual in onset and has been constant and waxing/waning. At its maximum, severity described as severe. When seen in the E.D., severity described as 8 / 10. It is described as "pain" and it is described as located in the right upper quadrant and in the upper abdomen and radiating to the upper back. The patient has had nausea. No vomiting or diarrhea. (this past winter the patient was apparently discovered to have a polyp in his biliary and pancreatic ductal systems. He underwent ERCP and had initial placement of a biliary and pancreatic stent. I saw him on May 31 as he was having abdominal pain at that time. He went for subsequent follow-up after that visit with [facility] l[facility] technician [facility]. 10 days ago he underwent a second ERCP and had his biliary stent removed and his pancreatic stent replaced. He was feeling better until about 4 days ago. That's when he developed his current abdominal pain. 2 days ago he went to the emergency room at the [facility] and underwent CT scanning and laboratory evaluation. He was subsequently discharged home.). Similar symptoms previously: Diagnosis: pancreatitis. REVIEW OF SYSTEMS No calf pain, chest pain, cough, difficulty breathing or pedal edema. He has had palpitations (chronically). It has been similar to previous symptoms. All systems otherwise negative, except as recorded above. PAST HISTORY PCP - [facility] - Dr. [facility]ina [facility]. Problems: Arrhythmia. SVT. Palpitations. Cardiac stent. Immunizations. Hyperglycemia. Diabetes Mellitus. Gout. Hypertension. Back Pain. Additional Surgeries: Coronary Angioplasty. Coronary Artery Bypass Graft. ERCP. Medications: Magnesium Oral. MetFORMIN HCl Oral. Methocarbamol Oral. Multiple Vitamins Oral. Omeprazole Oral. PreserVision AREDS Oral 1 caplet, 2x daily. Senna Lax Oral (Tablet 8.6 mg) 1 tablet, 2x daily. TERAZOSIN HCl Oral. Tramadol HCL Oral 50 mg, as needed. Acetaminophen Oral. Allopurinol Oral. AmLODIPine Besylate Oral. Aspirin Low Dose Oral. Atorvastatin Calcium Oral. Satya Mag Zinc +D3 Oral. Creon Oral (Capsule Delayed Release Particles 6000 unit) 4 capsules, daily. Fish Oil Oral. Flaxseed Oil Oral (Capsule 1200 mg) 1 capsule, daily. Glucosamine Chondroitin Complx Oral 1 tablet, 2x daily. Hydrocodone-Acetaminophen Oral. Latanoprost Ophthalmic (Solution 0.005 %). Lisinopril Oral. Allergies: Gabapentin. Nortriptyline. SOCIAL HISTORY Never smoker. No alcohol use or drug use. He lives with spouse. Has good social support. FAMILY HISTORY Diabetes in first-degree relative (sibling). he has a brother with renal failure. ADDITIONAL NOTES The nursing notes have been reviewed. PHYSICAL EXAM Vital Signs: 07/29/2016 11:49 BP: 119/63. HR: 91. RR: 15. O2 saturation: 94%. Temp: 100.4 F. Pain level now: 11/22. Have been reviewed. Appearance: Alert. Appears to be in pain. Eyes: Pupils equal, round and reactive to light. ENT: Pharynx normal. Neck: Neck supple. CVS: Abnormal rhythm, which is irregularly irregular. Respiratory: No respiratory distress. Breath sounds normal. Abdomen: Soft. Severe tenderness in the right upper quadrant. Bowel sounds normal. No mass. Back: Normal inspection. Skin: Skin warm and dry. No rash. Extremities: Extremities exhibit normal ROM. No calf tenderness. No lower extremity edema. LABS, X-RAYS, AND EKG EKG: Frequent ectopic beats. Premature ventricular contractions. RBBB. Left axis deviation. septal infarct age undetermined. Changes present when compared to prior EKG. (31 May 2016). The study has been independently viewed by me. KUB: (IMPRESSION: 1. Moderate stool throughout the colon. Consider obstipation. 2. Pancreatic biliary stent in position. 3. Otherwise negative abdomen. 4. Status post coronary artery bypass graft.). The X-rays were interpreted contemporaneously by me and discussed with the radiologist. Abdominal CT: IMPRESSION: AORTA AND PELVIC VESSELS: 1. 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 2. Marked calcified atheromatous change of the celiac origin with probable 70% narrowing. 3. Mild calcified atheromatous changes of the superior mesenteric artery. 4. Findings suggest a 40% stenosis of the right renal artery with 60% stenosis of the left renal artery. 5. Marked calcified atheromatous changes of the iliac vessels with 50 - 80% stenoses in the right iliac arteries and 80-90% stenoses in the left iliac vessels. 6. 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 7. Vascular evaluation is partially compromised due to marked calcified atheromatous changes. ABDOMEN AND PELVIS: 1. Interval removal of common duct stent. There is a 2.7 cm low density area in the region of the caudate lobe which could represent a residual or developing fluid collection (may be a sequela of stent removal). Developing abscess or necrotic mass might also be considered (less likely). 2. Interim repositioning of pancreatic duct stent (proximal stent protrudes through the mid pancreatic duct - - but no evidence of peripancreatic fluid collection). 3. Moderate stool throughout the colon. Consider obstipation. 4. Moderate enlargement prostate (6 cm). 5. Penile prosthesis with pelvic reservoir. The study was interpreted contemporaneously by me and discussed with the radiologist. Abdominal Sonogram: The common duct is dilated (8 mm). (Gallbladder 12 cm in length). The study was independently viewed by me. Laboratory Tests: UA-Culture if indicated: (SOL: 07/29/2016 11:56) ( MsgRcvd 07/29/2016 12:46) Final results Test Result Flag Units (Reference) URINE COLOR YELLOW URINE APPEARANCE CLEAR URINE GLUCOSE TRACE (NEGATIVE) URINE BILIRUBIN NEGATIVE (NEGATIVE) URINE KETONE NEGATIVE (NEGATIVE) URINE SPECIFIC GRAVITY 1.025 (1.010-1.030) URINE PH 5.5 (5.0-8.0) URINE PROTEIN 2+ (NEGATIVE) URINE UROBILINOGEN 0.2 EU/dL (0.2-1.0) URINE NITRITE NEGATIVE (NEGATIVE) URINE BLOOD NEGATIVE (NEGATIVE) URINE LEUK ESTERASE NEGATIVE (NEGATIVE) URINE RBC 0-1 rbc/hpf (0-1) URINE WBC 3-5 wbc/hpf (0-1) URINE EPITHELIAL CELLS 1-3 EPI/hpf (0-5) URINE BACTERIA FEW (1+) (NONE SEEN) URINE COMMENT CULT NOT INDICATED 10-15 HYALINE CAST.URINE CULTURES ARE SET-UP BASED ON THE FOLLOWING CRITERIA:POSITIVE NITRITEPOSITIVE LEUKOCYTE ESTERASEGREATER THAN 10 WHITE BLOOD CELLSMODERATE (2+) OR GREATER BACTERIA CBC w Diff: (SOL: 07/29/2016 12:28) ( [facility] 07/29/2016 21:29) Final results Test Result Flag Units (Reference) WHITE BLOOD COUNT 4.0 L K/uL (4.5-11.5) RED BLOOD COUNT 3.53 L M/uL (4.50-5.90) HEMOGLOBIN 10.9 L gm/dL (13.5-17.5) HEMATOCRIT 32.6 L % (41.0-53.0) MEAN CELL VOLUME 92 fL (80-100) MEAN CORPUSCULAR HGB 31 pg (26-34) MEAN CORPUSCULAR HGB CONC 34 g/dL (31-37) RED CELL DISTRIBUTION WIDTH 13.9 % (11.6-14.8) PLATELET COUNT 135 L K/uL (150-400) NEUTROPHIL % 89.2 H % (50-75) LYMPH % 8.0 L % (25-40) MONO % 2.1 L % (3-14) EOSINOPHIL % 0.7 % (0-4) BASOPHIL % 0 % (0-2) POLY % 82 H % (50-75) BAND % 4 % (0-8) LYMPH 9 L % (25-40) MONO 4 % (3-14) EOSINOPHIL % 1 % (0-4) BASOPHIL % 0 % (0-2) METAMYELOCYTE % 0 % (0-1) MYELOCYTE 0 % (0-1) OTHER CELL TYPE 0 RBC MORPHOLOGY NORMOCHROMIC~~NORMOCYTIC Lactate, Serum: (SOL: 07/29/2016 12:51) ( [facility] 07/29/2016 13:31) Final results Test Result Flag Units (Reference) LACTIC ACID 2.2 H mmol/L (0.4-2.0) CMP: (SOL: 07/29/2016 12:28) ( MsgRcvd 07/29/2016 13:02) Final results Test Result Flag Units (Reference) GLUCOSE 188 H mg/dL (70-110) BUN 18 mg/dL (7-18) CREATININE 1.0 mg/dL (0.6-1.3) Estimated GFR >60 mL/min Estimated GFR- >60 mL/min Note: Persistent reduction over 3 months in eGFR<60 mL/min/1.73 m2 defines CKD. Patients with eGFR values>=60 mL/min/1.73 m2 may also have CKD if evidence ofpersistent proteinuria. Additional information may be foundat www.[email or web address].org. SODIUM 139 mmol/L (136-145) POTASSIUM 4.0 mmol/L (3.5-5.1) CHLORIDE 102 mmol/L (98-107) CARBON DIOXIDE 24 mmol/L (21-32) CALCIUM 8.8 mg/dL (8.5-10.1) TOTAL PROTEIN 6.7 g/dL (6.4-8.2) ALBUMIN 2.7 L g/dL (3.3-5.0) BILIRUBIN, TOTAL 0.4 mg/dL (0.0-1.0) ALKALINE PHOSPHATASE 76 U/L (46-116) AST (SGOT) 13 L U/L (15-37) ALT (SGPT) 13 U/L (12-78) LIPASE 31 L U/L (73-393) AMYLASE 37 U/L (25-115) CPK 38 U/L (24-260) TROPONIN I <0.05 ng/mL (0.00-1.5) TROPONIN REFERENCE RANGE:<0.1 NEGATIVE0.1-1.5 INDETERMINANT>1.5 POSITIVE . PROGRESS AND PROCEDURES Course of Care: Review of his old records reveal that he has had prior bouts of arrhythmias including atrial fibrillation and PVCs with bigeminy. His family reports that he has had bouts of SVT in the past I spoke with the patient's lamination technician at the [facility] [place], Dr. Medina . This was at the recommendation of the on-call doc Dr. Hyde. Dr. Medina was concerned 10 days post procedure this fluid collection could represent a small abscess and suggested that the patient be admitted and receive IV antibiotics, suggesting Zosyn. There are no beds available at the [facility]. She requested that the patient be admitted here and observed with further consideration for transfer. However, on speaking with our hospitalist Dr. Snow, he does not feel comfortable managing this patient here and radiology believes that this lesion is too deep for safe percutaneous drainage here. I contacted the lamination technician at [facility], Dr. Colunga and he is not comfortable accepting in transfer as he does not do ERCP. This was also the case at [facility] when I spoke with Dr. Walsh the lamination technician there. I subsequently discussed the case with Dr. Velez the lamination technician at /[facility]. He agrees that the patient should be admitted and continued on antibiotics and would be willing to accept the patient in transfer however no beds are available there either. He suggests that the patient should be admitted here continued on IV antibiotics and arrangements made to transfer the patient to the [facility] tomorrow or the next day when a bed is available. I again contacted Dr. Snow and explained the situation to him. He reluctantly agreed to admit the patient . I have entered some transition orders in [facility] and will continue him with IV fluids, keep him nothing by mouth and have ordered another dose of pain medication as needed. I had a discussion with the patient about his wishes in the event of cardiopulmonary or respiratory emergency and he says that he would like to receive resuscitation and/or intubation and ventilation if needed. Patient/family counseled. Old medical records reviewed. (from the [facility] in [place].). Disposition: Admitted. CLINICAL IMPRESSION Right upper quadrant and epigastric abdominal pain. Fever. intraabdominal fluid collection. (Electronically signed by Nirav Wheeler MD 07/29/2016 23:31) Addenda for VAL PEARCE [facility] VisitID: [id number] Date: 07/29/2016 07/30/2016 0:49 [facility] transport to inpatient (CCU) room via Nurse, on monitor, with oxygen. (Electronically signed by Khris Sunshine R.N. - 07/30/2016 0:49)
--- NOTE | 2016-07-29 23:03 | ED NURSING NOTES ---
Clinical Report - Nurses [facility] [address] [place] [address] 07/29/2016 11:35 Patient: VAL PEARCE TRIAGE Triage time 11:45. Acuity: LEVEL 3. Chief Complaint: ABDOMINAL PAIN. 12:10 07/29/16. Alert. No acute distress. SEPSIS SCREEN: Sepsis Screen. Negative (no infection suspected/documented). TALIB COMA SCORE: [place] Coma Scale: 15- eyes open spontaneously (4); best verbal response- oriented x 4 (5); best motor response- obeys commands (6). --12:11 Bre Gonzalez R.N. 11:49 07/29/16. BP: 119/63. HR: 91. RR: 15. O2 saturation: 94%. Temp: 100.4 F. Pain level now: 11/22. --12:11 Bre Gonzalez R.N. Weight: 80.2 kg stated. Height/Length: 75 inches Per Patient. BMI: 22.1. --12:09 Bre Gonzalez R.N. Medications Acetaminophen Oral. Allopurinol Oral. AmLODIPine Besylate Oral. Aspirin Low Dose Oral. Atorvastatin Calcium Oral. Satya Mag Zinc +D3 Oral. Creon Oral (Capsule Delayed Release Particles 6000 unit) 4 capsules, daily. Fish Oil Oral. Flaxseed Oil Oral (Capsule 1200 mg) 1 capsule, daily. Glucosamine Chondroitin Complx Oral 1 tablet, 2x daily. Hydrocodone-Acetaminophen Oral. Latanoprost Ophthalmic (Solution 0.005 %). Lisinopril Oral. --12:01 Bre Gonzalez R.N. Magnesium Oral. MetFORMIN HCl Oral. Methocarbamol Oral. Multiple Vitamins Oral. Omeprazole Oral. PreserVision AREDS Oral 1 caplet, 2x daily. Senna Lax Oral (Tablet 8.6 mg) 1 tablet, 2x daily. TERAZOSIN HCl Oral. Tramadol HCL Oral 50 mg, as needed. --12:01 Bre Gonzalez R.N. Allergies Gabapentin. Nortriptyline. --12:01 Bre Gonzalez R.N. History Arrived by private vehicle. Historian: patient. Accompanied by family. Primary physician (Dr Mcgraw at [place]). Onset. (Saturday). ( Patient reports he had gall bladder and pancreas stents placed in May. The stents were adjusted in early July. 8 days later, the patient began experiencing flank pain that moved to the epigastric region. The patient was seen at the [facility] on Saturday, but all tests were negative.). He has had nausea and constipation. ( chills). 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 PAST MEDICAL HX: Immunizations: up-to-date. SOCIAL HX: Never smoker. No alcohol use or drug use. FALL RISK ASSESSMENT: Fall risk assessment completed. No fall risk identified. NUTRITIONAL RISK ASSESSMENT: The nutritional risk assessment revealed no deficiencies. FUNCTIONAL ASSESSMENT: Functional assessment: no impairments noted. LEARNING NEEDS ASSESSMENT: The learning needs assessment revealed no barriers. SKIN INTEGRITY ASSESSMENT: Skin integrity risk assessment completed. No skin integrity risk identified. --12:11 Bre Gonzalez R.N. PROBLEMS: SVT. Palpitations. Cardiac stent. Immunizations. Hyperglycemia. Diabetes Mellitus. Gout. Hypertension. Back Pain. --12:01 Bre Gonzalez R.N. Pancreatitis [RuleOut]. Abdominal Pain [RuleOut]. Anemia [RuleOut]. --12:01 Bre Gonzalez R.N. ADDITIONAL SURGERIES: Coronary Angioplasty. Coronary Artery Bypass Graft. ERCP. --12:01 Bre Gonzalez R.N. Interventions ID band on patient. To treatment room. --12:11 Bre Gonzalez R.N. PHYSICAL ASSESSMENT 12:00. Ambulatory to room. GENERAL / NEURO / PSYCH: Alert. Oriented X 4. Appears in pain. HEENT: Mucous membranes are pink. RESPIRATORY: Respirations not labored. CVS: Capillary refill less than 2 seconds. GI / : Abdomen soft. Abdominal tenderness in the upper abdomen. Guarding present in the upper abdomen. Bowel sounds within normal limits. SKIN: Skin is warm and dry. --16:54 Bre Gonzalez R.N. ( Patient sitting up in bed, awake, and conversant. Asking questions about his care status, and requests to speak with the doctor about his test results. Dr. Summer notified.). GENERAL / NEURO / PSYCH: Alert. Oriented X 4. RESPIRATORY: Respirations not labored. CVS: Capillary refill less than 2 seconds. --19:52 Khris Sunshine R.N. 19:50 07/29/16. BP: 119/39. HR: 72. RR: 20 (unlabored). O2 saturation: 97% on nasal cannula at 2 liters/minute. Additional comments: Ventricular bigemeny on the bottom cager. --19:52 Khris Sunshine R.N. NURSING PROGRESS NOTES EKG time: (1220). EKG was ordered, performed by a tech and shown to the ED physician. --12:22 Danica Arce ER Tech1 Patient ID band checked for patient name and birthdate: patient confirmed. Blood samples drawn from the right forearm by nurse per protocol ; labeled in presence of the patient and sent to lab: rainbow set: blood culture (1st set). Line flushed with 5 mL normal saline post blood draw. Patient ID band checked for patient name and birthdate: patient confirmed. Instructions provided to collect clean catch urine and patient verbalized understanding. Clean catch urine collected with return of yellow-colored clear urine; sample sent to lab for urinalysis. Specimen labeled in the presence of the patient. --12:41 Bre Gonzalez R.N. 12:38 07/29/2016 Site #1 started via IV in the right forearm with an 20g angiocath; two attempts. Blood drawn: rainbow set and cultures x1. Saline lock flushed with 5 mL saline. --12:43 Bre Gonzalez R.N. 12:42 07/29/16. Patient transported to radiology by stretcher with tech. --12:42 Bre Gonzalez R.N. 12:55 07/29/2016 Zofran (Ondansetron HCl) IVP 4 mg given over 2 minute(s) via site #1. Allergies verified and confirmed 5 rights. IV patency established. IV site checked: no pain, redness, or swelling. IV flushed thoroughly pre- and post-medication administration. IVP given by RN. --13:01 Bre Gonzalez R.N. 12:57 07/29/2016 Dilaudid (HYDROmorphone HCl PF) IVP 0.5 mg given over 1 minute(s) via site #1. Allergies verified, confirmed 5 rights and sedative warning given to the patient and patient's family. IV patency established. IV site checked: no pain, redness, or swelling. IV flushed thoroughly pre- and post-medication administration. IVP given by RN. --13:02 Bre Gonzalez R.N. 12:58 07/29/2016 Started bag #1 1000 mL IV Fluids IV NS (Saline); bolus of 1000 mL over 30 minute(s) via site #1 via IV pump. Allergies verified and confirmed 5 rights. IV patency established. IV site checked: no pain, redness, or swelling. IV flushed thoroughly pre- and post-medication administration. Completed per protocol. --12:58 Bre Gonzalez R.N. 13:24 07/29/2016 IV Fluids IV NS via IV site #1 Rate Changed: bag #1 decreased to 150 mL/hr via IV pump. IV patency established. IV site checked: no pain, redness, or swelling. IV flushed thoroughly. Confirmed 5 Rights. --13:24 Bre Gonzalez R.N. 13:28 07/29/16. Reassessment after oxygen administered and medication administered (Patient states "I feel a little better after the pain medication, but my pain is still an 8/10 when I breathe in."). He has had no adverse reaction. --13:28 Bre Gonzalez R.N. 14:25 07/29/16. BP: 105/58. HR: 94. RR: 21. O2 saturation: 96%. Temp: 98.1 F. Pain level now: 7/10. Additional comments: Patient states his pain is "down to a 7 except when I have bursts of pain. Then it's about an 11/12.". --14:27 Bre Gonzalez R.N. 16:18 07/29/16. BP: 133/43. HR: 81. RR: 23. O2 saturation: 96%. Temp: 99.7 F. Pain level now: 7/10. --16:21 Bre Gonzalez R.N. 16:29 07/29/2016 Dilaudid (HYDROmorphone HCl PF) IVP 0.5 mg given over 1 minute(s) via site #1. Allergies verified, confirmed 5 rights and sedative warning given to the patient. IV patency established. IV site checked: no pain, redness, or swelling. IV flushed thoroughly pre- and post-medication administration. IVP given by RN. --16:39 Bre Gonzalez R.N. 16:40 07/29/16. ( US at bedside.). --16:40 Bre Gonzalez R.N. 17:42 07/29/16. BP: 133/82. HR: 89. RR: 19. O2 saturation: 97%. Temp: 99.8 F. Pain level now: 10/22. --17:44 Bre Gonzalez R.N. 17:55 07/29/16. Patient and family informed about reason for wait and about plan of care. --17:55 Bre Gonzalez R.N. 19:23 07/29/16. BP: 105/48. HR: 75. RR: 20. O2 saturation: 95%. --19:26 Ilia Barger R.N. 20:17 07/29/2016 Started 3.375 gm of Zosyn (Piperacillin Sod-Tazobactam So) IVPB in bag #1 50 mL; at 100 mL/hr over 30 minute(s) via site #1 via IV pump. Allergies verified and confirmed 5 rights. IV patency established. IV site checked: no pain, redness, or swelling. IV flushed thoroughly pre- and post-medication administration. --20:17 Khris Sunshine R.N. ( Patient sitting up in bed, talking with family. Dr. Wheeler saw patient at 2255. The patient is requesting pain medication. I notified Dr. Wheeler.). --23:10 Khris Sunshine R.N. 22:50 07/29/16. BP: 122/53. HR: 76. RR: 20. O2 saturation: 96% on nasal cannula at 2 liters/minute. --23:10 Khris Sunshine R.N. Two patient identifiers checked. Call light placed in reach. Side rails up x 1. Bed placed in lowest position. Brakes of bed on. --23:11 Khris Sunshine R.N. 23:19 07/29/2016 Dilaudid (HYDROmorphone HCl PF) IVP 0.5 mg given over 2 minute(s) via site #1. Allergies verified, confirmed 5 rights and sedative warning given to the patient. IV patency established. IV site checked: no pain, redness, or swelling. IV flushed thoroughly pre- and post-medication administration. IVP given by RN. --23:21 Khris Sunshine R.N. ( Inpatient doctor Edy with patient). --23:22 Khris Sunshine R.N. 00:04 07/30/2016 Dilaudid (HYDROmorphone HCl PF) IVP 1 mg given over 2 minute(s) via site #1. Allergies verified, confirmed 5 rights and sedative warning given to the patient. IV patency established. IV site checked: no pain, redness, or swelling. IV flushed thoroughly pre- and post-medication administration. IVP given by RN. --00:07 Khris Sunshine R.N. 00:07 07/30/16. BP: 140/70. HR: 71. RR: 22 (regular). O2 saturation: 99% on nasal cannula at 2 liters/minute. Additional comments: Sinus with PVC's on bottom cager. --00:08 Khris Sunshine R.N. Two patient identifiers checked. Call light placed in reach. Side rails up x 1. Bed placed in lowest position. Brakes of bed on. ( Patinet sitting in bed, conversant and awake). --00:08 Khris Sunshine R.N. 20:47 07/29/2016 Zosyn IVPB Discontinued: infused. Total amount infused: 50 mL. IV patency established. IV site checked: no pain, redness, or swelling. IV flushed thoroughly. --00:47 Khris Sunshine R.N. 00:45 07/30/2016 IV Saline Lock Drip IV Continued: upon admission at the rate of 0 mL/hr. IV patency established. IV site checked: no pain, redness, or swelling. IV flushed thoroughly. --00:46 Khris Sunshine R.N. 00:45 07/30/2016 IV Fluids IV NS Discontinued: completed. Total amount infused: 1000 mL. IV patency established. IV site checked: no pain, redness, or swelling. IV flushed thoroughly. --00:47 Khris Sunshine R.N. DISPOSITION / DISCHARGE Report was given to a nurse via a phone call. Report included patient's care, treatment, medications, reviewed medication reconcilliation, and condition (including any recent changes or anticipated changes). All questions were answered. Report was acknowledged. (Report given to DERIC Francis ([facility] recieving nurse)). Patient's personal items include: shirt and pants; items were transported with the patient. --00:22 Khris Sunshine R.N. Departure time: 00:45. Condition at departure: stable. --00:48 Khris Sunshine R.N. 00:45 07/30/16. BP: 120/57. HR: 63. RR: 22. O2 saturation: 95% on room air. --00:48 Khris Sunshine R.N. Locked/Released at 07/30/2016 0:48 by Khris Sunshine R.N.
--- NOTE | 2016-07-29 23:03 | ED NURSING NOTES ---
Clinical Report - Nurses [facility] [address] [place] [address] 07/29/2016 11:35 Patient: VAL PEARCE TRIAGE Triage time 11:45. Acuity: LEVEL 3. Chief Complaint: ABDOMINAL PAIN. 12:10 07/29/16. Alert. No acute distress. SEPSIS SCREEN: Sepsis Screen. Negative (no infection suspected/documented). TALIB COMA SCORE: [place] Coma Scale: 15- eyes open spontaneously (4); best verbal response- oriented x 4 (5); best motor response- obeys commands (6). --12:11 Bre Gonzalez R.N. 11:49 07/29/16. BP: 119/63. HR: 91. RR: 15. O2 saturation: 94%. Temp: 100.4 F. Pain level now: 11/22. --12:11 rBe Gonzalez R.N. Weight: 80.2 kg stated. Height/Length: 75 inches Per Patient. BMI: 22.1. --12:09 Bre Gonzalez R.N. Medications Acetaminophen Oral. Allopurinol Oral. AmLODIPine Besylate Oral. Aspirin Low Dose Oral. Atorvastatin Calcium Oral. Satya Mag Zinc +D3 Oral. Creon Oral (Capsule Delayed Release Particles 6000 unit) 4 capsules, daily. Fish Oil Oral. Flaxseed Oil Oral (Capsule 1200 mg) 1 capsule, daily. Glucosamine Chondroitin Complx Oral 1 tablet, 2x daily. Hydrocodone-Acetaminophen Oral. Latanoprost Ophthalmic (Solution 0.005 %). Lisinopril Oral. --12:01 Bre Gonzalez R.N. Magnesium Oral. MetFORMIN HCl Oral. Methocarbamol Oral. Multiple Vitamins Oral. Omeprazole Oral. PreserVision AREDS Oral 1 caplet, 2x daily. Senna Lax Oral (Tablet 8.6 mg) 1 tablet, 2x daily. TERAZOSIN HCl Oral. Tramadol HCL Oral 50 mg, as needed. --12:01 Bre Gonzalez R.N. Allergies Gabapentin. Nortriptyline. --12:01 Bre Gonzalez R.N. History Arrived by private vehicle. Historian: patient. Accompanied by family. Primary physician ([facility]). Onset. (Saturday). ( Patient reports he had gall bladder and pancreas stents placed in May. The stents were adjusted in early July. 8 days later, the patient began experiencing flank pain that moved to the epigastric region. The patient was seen [facility] the [facility] on Saturday, but all tests were negative.). He has had nausea and constipation. ( chills). 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 PAST MEDICAL HX: Immunizations: up-to-date. SOCIAL HX: Never smoker. No alcohol use or drug use. FALL RISK ASSESSMENT: Fall risk assessment completed. No fall risk identified. NUTRITIONAL RISK ASSESSMENT: The nutritional risk assessment revealed no deficiencies. FUNCTIONAL ASSESSMENT: Functional assessment: no impairments noted. LEARNING NEEDS ASSESSMENT: The learning needs assessment revealed no barriers. SKIN INTEGRITY ASSESSMENT: Skin integrity risk assessment completed. No skin integrity risk identified. --12:11 Bre Gonzalez R.N. PROBLEMS: SVT. Palpitations. Cardiac stent. Immunizations. Hyperglycemia. Diabetes Mellitus. Gout. Hypertension. Back Pain. --12:01 Bre Gonzalez R.N. Pancreatitis [RuleOut]. Abdominal Pain [RuleOut]. Anemia [RuleOut]. --12:01 Bre Gonzalez R.N. ADDITIONAL SURGERIES: Coronary Angioplasty. Coronary Artery Bypass Graft. ERCP. --12:01 Bre Gonzalez R.N. Interventions ID band on patient. To treatment room. --12:11 Bre Gonzalez R.N. PHYSICAL ASSESSMENT 12:00. Ambulatory to room. GENERAL / NEURO / PSYCH: Alert. Oriented X 4. Appears in pain. HEENT: Mucous membranes are pink. RESPIRATORY: Respirations not labored. CVS: Capillary refill less than 2 seconds. GI / : Abdomen soft. Abdominal tenderness in the upper abdomen. Guarding present in the upper abdomen. Bowel sounds within normal limits. SKIN: Skin is warm and dry. --16:54 Bre Gonzalez R.N. ( Patient sitting up in bed, awake, and conversant. Asking questions about his care status, and requests to speak with the doctor about his test results. Dr. Summer notified.). GENERAL / NEURO / PSYCH: Alert. Oriented X 4. RESPIRATORY: Respirations not labored. CVS: Capillary refill less than 2 seconds. --19:52 Khris Sunshine R.N. 19:50 07/29/16. BP: 119/39. HR: 72. RR: 20 (unlabored). O2 saturation: 97% on nasal cannula at 2 liters/minute. Additional comments: Ventricular bigemeny on the school lunch monitor. --19:52 Khris Sunshine R.N. NURSING PROGRESS NOTES EKG time: (1220). EKG was ordered, performed by a tech and shown to the ED physician. --12:22 Danica Arce ER Tech1 Patient ID band checked for patient name and birthdate: patient confirmed. Blood samples drawn from the right forearm by nurse per protocol ; labeled in presence of the patient and sent to lab: rainbow set: blood culture (1st set). Line flushed with 5 mL normal saline post blood draw. Patient ID band checked for patient name and birthdate: patient confirmed. Instructions provided to collect clean catch urine and patient verbalized understanding. Clean catch urine collected with return of yellow-colored clear urine; sample sent to lab for urinalysis. Specimen labeled in the presence of the patient. --12:41 Bre Gonzalez R.N. 12:38 07/29/2016 Site #1 started via IV in the right forearm with an 20g angiocath; two attempts. Blood drawn: rainbow set and cultures x1. Saline lock flushed with 5 mL saline. --12:43 Bre Gonzalez R.N. 12:42 07/29/16. Patient transported to radiology by stretcher with tech. --12:42 Bre Gonzalez R.N. 12:55 07/29/2016 Zofran (Ondansetron HCl) IVP 4 mg given over 2 minute(s) via site #1. Allergies verified and confirmed 5 rights. IV patency established. IV site checked: no pain, redness, or swelling. IV flushed thoroughly pre- and post-medication administration. IVP given by RN. --13:01 Bre Gonzalez R.N. 12:57 07/29/2016 Dilaudid (HYDROmorphone HCl PF) IVP 0.5 mg given over 1 minute(s) via site #1. Allergies verified, confirmed 5 rights and sedative warning given to the patient and patient's family. IV patency established. IV site checked: no pain, redness, or swelling. IV flushed thoroughly pre- and post-medication administration. IVP given by RN. --13:02 Bre Gonzalez R.N. 12:58 07/29/2016 Started bag #1 1000 mL IV Fluids IV NS (Saline); bolus of 1000 mL over 30 minute(s) via site #1 via IV pump. Allergies verified and confirmed 5 rights. IV patency established. IV site checked: no pain, redness, or swelling. IV flushed thoroughly pre- and post-medication administration. Completed per protocol. --12:58 Bre Gonzalez R.N. 13:24 07/29/2016 IV Fluids IV NS via IV site #1 Rate Changed: bag #1 decreased to 150 mL/hr via IV pump. IV patency established. IV site checked: no pain, redness, or swelling. IV flushed thoroughly. Confirmed 5 Rights. --13:24 Bre Gonzalez R.N. 13:28 07/29/16. Reassessment after oxygen administered and medication administered (Patient states "I feel a little better after the pain medication, but my pain is still an 8/10 when I breathe in."). He has had no adverse reaction. --13:28 Bre Gonzalez R.N. 14:25 07/29/16. BP: 105/58. HR: 94. RR: 21. O2 saturation: 96%. Temp: 98.1 F. Pain level now: 7/10. Additional comments: Patient states his pain is "down to a 7 except when I have bursts of pain. Then it's about an 11/12.". --14:27 Bre Gonzalez R.N. 16:18 07/29/16. BP: 133/43. HR: 81. RR: 23. O2 saturation: 96%. Temp: 99.7 F. Pain level now: 7/10. --16:21 Bre Gonzalez R.N. 16:29 07/29/2016 Dilaudid (HYDROmorphone HCl PF) IVP 0.5 mg given over 1 minute(s) via site #1. Allergies verified, confirmed 5 rights and sedative warning given to the patient. IV patency established. IV site checked: no pain, redness, or swelling. IV flushed thoroughly pre- and post-medication administration. IVP given by RN. --16:39 Bre Gonzalez R.N. 16:40 07/29/16. ( US at bedside.). --16:40 Bre Gonzalez R.N. 17:42 07/29/16. BP: 133/82. HR: 89. RR: 19. O2 saturation: 97%. Temp: 99.8 F. Pain level now: 10/22. --17:44 Bre Gonzalez R.N. 17:55 07/29/16. Patient and family informed about reason for wait and about plan of care. --17:55 Bre Gonzalez R.N. 19:23 07/29/16. BP: 105/48. HR: 75. RR: 20. O2 saturation: 95%. --19:26 Ilia Barger R.N. 20:17 07/29/2016 Started 3.375 gm of Zosyn (Piperacillin Sod-Tazobactam So) IVPB in bag #1 50 mL; at 100 mL/hr over 30 minute(s) via site #1 via IV pump. Allergies verified and confirmed 5 rights. IV patency established. IV site checked: no pain, redness, or swelling. IV flushed thoroughly pre- and post-medication administration. --20:17 Khris Sunshine R.N. ( Patient sitting up in bed, talking with family. Dr. Wheeler saw patient at 2255. The patient is requesting pain medication. I notified Dr. Wheeler.). --23:10 Khris Sunshine R.N. 22:50 07/29/16. BP: 122/53. HR: 76. RR: 20. O2 saturation: 96% on nasal cannula at 2 liters/minute. --23:10 Khris Sunshine R.N. Two patient identifiers checked. Call light placed in reach. Side rails up x 1. Bed placed in lowest position. Brakes of bed on. --23:11 Khris Sunshine R.N. 23:19 07/29/2016 Dilaudid (HYDROmorphone HCl PF) IVP 0.5 mg given over 2 minute(s) via site #1. Allergies verified, confirmed 5 rights and sedative warning given to the patient. IV patency established. IV site checked: no pain, redness, or swelling. IV flushed thoroughly pre- and post-medication administration. IVP given by RN. --23:21 Khris Sunshine R.N. ( Inpatient doctor Edy with patient). --23:22 Khris Sunshine R.N. 00:04 07/30/2016 Dilaudid (HYDROmorphone HCl PF) IVP 1 mg given over 2 minute(s) via site #1. Allergies verified, confirmed 5 rights and sedative warning given to the patient. IV patency established. IV site checked: no pain, redness, or swelling. IV flushed thoroughly pre- and post-medication administration. IVP given by RN. --00:07 Khris Sunshine R.N. 00:07 07/30/16. BP: 140/70. HR: 71. RR: 22 (regular). O2 saturation: 99% on nasal cannula at 2 liters/minute. Additional comments: Sinus with PVC's on school lunch monitor. --00:08 Khris Sunshine R.N. Two patient identifiers checked. Call light placed in reach. Side rails up x 1. Bed placed in lowest position. Brakes of bed on. ( Patinet sitting in bed, conversant and awake). --00:08 Khris Sunshine R.N. 20:47 07/29/2016 Zosyn IVPB Discontinued: infused. Total amount infused: 50 mL. IV patency established. IV site checked: no pain, redness, or swelling. IV flushed thoroughly. --00:47 Khris Sunshine R.N. 00:45 07/30/2016 IV Saline Lock Drip IV Continued: upon admission at the rate of 0 mL/hr. IV patency established. IV site checked: no pain, redness, or swelling. IV flushed thoroughly. --00:46 Khris Sunshine R.N. 00:45 07/30/2016 IV Fluids IV NS Discontinued: completed. Total amount infused: 1000 mL. IV patency established. IV site checked: no pain, redness, or swelling. IV flushed thoroughly. --00:47 Khris Sunshien R.N. DISPOSITION / DISCHARGE Report was given to a nurse via a phone call. Report included patient's care, treatment, medications, reviewed medication reconcilliation, and condition (including any recent changes or anticipated changes). All questions were answered. Report was acknowledged. (Report given to DERIC Francis ([facility] recieving nurse)). Patient's personal items include: shirt and pants; items were transported with the patient. --00:22 Khris Sunshine R.N. Departure time: 00:45. Condition at departure: stable. --00:48 Khris Sunshine R.N. 00:45 07/30/16. BP: 120/57. HR: 63. RR: 22. O2 saturation: 95% on room air. --00:48 Khris Sunshine R.N. Locked/Released at 07/30/2016 0:48 by Khris Sunshine R.N.
--- NOTE | 2016-07-29 23:03 | ED CLINICAL REPORT ---
Clinical Report - Physicians/Mid Levels [facility] [address] [place] [address] 07/29/2016 11:35 Patient: VAL PEARCE Time Seen: 11:45. Arrived- By private vehicle. Historian- patient. HISTORY OF PRESENT ILLNESS Chief Complaint: ABDOMINAL PAIN. This started about 4 days ago and is still present. It was gradual in onset and has been constant and waxing/waning. At its maximum, severity described as severe. When seen in the E.D., severity described as 8 / 10. It is described as "pain" and it is described as located in the right upper quadrant and in the upper abdomen and radiating to the upper back. The patient has had nausea. No vomiting or diarrhea. (this past winter the patient was apparently discovered to have a polyp in his biliary and pancreatic ductal systems. He underwent ERCP and had initial placement of a biliary and pancreatic stent. I saw him on May 31 as he was having abdominal pain at that time. He went for subsequent follow-up after that visit with his pit tanner at the [facility]. 10 days ago he underwent a second ERCP and had his biliary stent removed and his pancreatic stent replaced. He was feeling better until about 4 days ago. That's when he developed his current abdominal pain. 2 days ago he went to the emergency room at the [facility] and underwent CT scanning and laboratory evaluation. He was subsequently discharged home.). Similar symptoms previously: Diagnosis: pancreatitis. REVIEW OF SYSTEMS No calf pain, chest pain, cough, difficulty breathing or pedal edema. He has had palpitations (chronically). It has been similar to previous symptoms. All systems otherwise negative, except as recorded above. PAST HISTORY PCP - [facility] - Dr. Medina at the [facility]. Problems: Arrhythmia. SVT. Palpitations. Cardiac stent. Immunizations. Hyperglycemia. Diabetes Mellitus. Gout. Hypertension. Back Pain. Additional Surgeries: Coronary Angioplasty. Coronary Artery Bypass Graft. ERCP. Medications: Magnesium Oral. MetFORMIN HCl Oral. Methocarbamol Oral. Multiple Vitamins Oral. Omeprazole Oral. PreserVision AREDS Oral 1 caplet, 2x daily. Senna Lax Oral (Tablet 8.6 mg) 1 tablet, 2x daily. TERAZOSIN HCl Oral. Tramadol HCL Oral 50 mg, as needed. Acetaminophen Oral. Allopurinol Oral. AmLODIPine Besylate Oral. Aspirin Low Dose Oral. Atorvastatin Calcium Oral. Satya Mag Zinc +D3 Oral. Creon Oral (Capsule Delayed Release Particles 6000 unit) 4 capsules, daily. Fish Oil Oral. Flaxseed Oil Oral (Capsule 1200 mg) 1 capsule, daily. Glucosamine Chondroitin Complx Oral 1 tablet, 2x daily. Hydrocodone-Acetaminophen Oral. Latanoprost Ophthalmic (Solution 0.005 %). Lisinopril Oral. Allergies: Gabapentin. Nortriptyline. SOCIAL HISTORY Never smoker. No alcohol use or drug use. He lives with spouse. Has good social support. FAMILY HISTORY Diabetes in first-degree relative (sibling). he has a brother with renal failure. ADDITIONAL NOTES The nursing notes have been reviewed. PHYSICAL EXAM Vital Signs: 07/29/2016 11:49 BP: 119/63. HR: 91. RR: 15. O2 saturation: 94%. Temp: 100.4 F. Pain level now: 11/22. Have been reviewed. Appearance: Alert. Appears to be in pain. Eyes: Pupils equal, round and reactive to light. ENT: Pharynx normal. Neck: Neck supple. CVS: Abnormal rhythm, which is irregularly irregular. Respiratory: No respiratory distress. Breath sounds normal. Abdomen: Soft. Severe tenderness in the right upper quadrant. Bowel sounds normal. No mass. Back: Normal inspection. Skin: Skin warm and dry. No rash. Extremities: Extremities exhibit normal ROM. No calf tenderness. No lower extremity edema. LABS, X-RAYS, AND EKG EKG: Frequent ectopic beats. Premature ventricular contractions. RBBB. Left axis deviation. septal infarct age undetermined. Changes present when compared to prior EKG. (31 May 2016). The study has been independently viewed by me. KUB: (IMPRESSION: 1. Moderate stool throughout the colon. Consider obstipation. 2. Pancreatic biliary stent in position. 3. Otherwise negative abdomen. 4. Status post coronary artery bypass graft.). The X-rays were interpreted contemporaneously by me and discussed with the radiologist. Abdominal CT: IMPRESSION: AORTA AND PELVIC VESSELS: 1. 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 2. Marked calcified atheromatous change of the celiac origin with probable 70% narrowing. 3. Mild calcified atheromatous changes of the superior mesenteric artery. 4. Findings suggest a 40% stenosis of the right renal artery with 60% stenosis of the left renal artery. 5. Marked calcified atheromatous changes of the iliac vessels with 50 - 80% stenoses in the right iliac arteries and 80-90% stenoses in the left iliac vessels. 6. 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 7. Vascular evaluation is partially compromised due to marked calcified atheromatous changes. ABDOMEN AND PELVIS: 1. Interval removal of common duct stent. There is a 2.7 cm low density area in the region of the caudate lobe which could represent a residual or developing fluid collection (may be a sequela of stent removal). Developing abscess or necrotic mass might also be considered (less likely). 2. Interim repositioning of pancreatic duct stent (proximal stent protrudes through the mid pancreatic duct - - but no evidence of peripancreatic fluid collection). 3. Moderate stool throughout the colon. Consider obstipation. 4. Moderate enlargement prostate (6 cm). 5. Penile prosthesis with pelvic reservoir. The study was interpreted contemporaneously by me and discussed with the radiologist. Abdominal Sonogram: The common duct is dilated (8 mm). (Gallbladder 12 cm in length). The study was independently viewed by me. Laboratory Tests: UA-Culture if indicated: (SOL: 07/29/2016 11:56) ( MsgRcvd 07/29/2016 12:46) Final results Test Result Flag Units (Reference) URINE COLOR YELLOW URINE APPEARANCE CLEAR URINE GLUCOSE TRACE (NEGATIVE) URINE BILIRUBIN NEGATIVE (NEGATIVE) URINE KETONE NEGATIVE (NEGATIVE) URINE SPECIFIC GRAVITY 1.025 (1.010-1.030) URINE PH 5.5 (5.0-8.0) URINE PROTEIN 2+ (NEGATIVE) URINE UROBILINOGEN 0.2 EU/dL (0.2-1.0) URINE NITRITE NEGATIVE (NEGATIVE) URINE BLOOD NEGATIVE (NEGATIVE) URINE LEUK ESTERASE NEGATIVE (NEGATIVE) URINE RBC 0-1 rbc/hpf (0-1) URINE WBC 3-5 wbc/hpf (0-1) URINE EPITHELIAL CELLS 1-3 EPI/hpf (0-5) URINE BACTERIA FEW (1+) (NONE SEEN) URINE COMMENT CULT NOT INDICATED 10-15 HYALINE CAST.URINE CULTURES ARE SET-UP BASED ON THE FOLLOWING CRITERIA:POSITIVE NITRITEPOSITIVE LEUKOCYTE ESTERASEGREATER THAN 10 WHITE BLOOD CELLSMODERATE (2+) OR GREATER BACTERIA CBC w Diff: (SOL: 07/29/2016 12:28) ( [facility] Final results Test Result Flag Units (Reference) WHITE BLOOD COUNT 4.0 L K/uL (4.5-11.5) RED BLOOD COUNT 3.53 L M/uL (4.50-5.90) HEMOGLOBIN 10.9 L gm/dL (13.5-17.5) HEMATOCRIT 32.6 L % (41.0-53.0) MEAN CELL VOLUME 92 fL (80-100) MEAN CORPUSCULAR HGB 31 pg (26-34) MEAN CORPUSCULAR HGB CONC 34 g/dL (31-37) RED CELL DISTRIBUTION WIDTH 13.9 % (11.6-14.8) PLATELET COUNT 135 L K/uL (150-400) NEUTROPHIL % 89.2 H % (50-75) LYMPH % 8.0 L % (25-40) MONO % 2.1 L % (3-14) EOSINOPHIL % 0.7 % (0-4) BASOPHIL % 0 % (0-2) POLY % 82 H % (50-75) BAND % 4 % (0-8) LYMPH 9 L % (25-40) MONO 4 % (3-14) EOSINOPHIL % 1 % (0-4) BASOPHIL % 0 % (0-2) METAMYELOCYTE % 0 % (0-1) MYELOCYTE 0 % (0-1) OTHER CELL TYPE 0 RBC MORPHOLOGY NORMOCHROMIC~~NORMOCYTIC Lactate, Serum: (SOL: 07/29/2016 12:51) ( [facility] 07/29/2016 13:31) Final results Test Result Flag Units (Reference) LACTIC ACID 2.2 H mmol/L (0.4-2.0) CMP: (SOL: 07/29/2016 12:28) ( MsgRcvd 07/29/2016 13:02) Final results Test Result Flag Units (Reference) GLUCOSE 188 H mg/dL (70-110) BUN 18 mg/dL (7-18) CREATININE 1.0 mg/dL (0.6-1.3) Estimated GFR >60 mL/min Estimated GFR- >60 mL/min Note: Persistent reduction over 3 months in eGFR<60 mL/min/1.73 m2 defines CKD. Patients with eGFR values>=60 mL/min/1.73 m2 may also have CKD if evidence ofpersistent proteinuria. Additional information may be foundat www.kidney.org. SODIUM 139 mmol/L (136-145) POTASSIUM 4.0 mmol/L (3.5-5.1) CHLORIDE 102 mmol/L (98-107) CARBON DIOXIDE 24 mmol/L (21-32) CALCIUM 8.8 mg/dL (8.5-10.1) TOTAL PROTEIN 6.7 g/dL (6.4-8.2) ALBUMIN 2.7 L g/dL (3.3-5.0) BILIRUBIN, TOTAL 0.4 mg/dL (0.0-1.0) ALKALINE PHOSPHATASE 76 U/L (46-116) AST (SGOT) 13 L U/L (15-37) ALT (SGPT) 13 U/L (12-78) LIPASE 31 L U/L (73-393) AMYLASE 37 U/L (25-115) CPK 38 U/L (24-260) TROPONIN I <0.05 ng/mL (0.00-1.5) TROPONIN REFERENCE RANGE:<0.1 NEGATIVE0.1-1.5 INDETERMINANT>1.5 POSITIVE . PROGRESS AND PROCEDURES Course of Care: Review of his old records reveal that he has had prior bouts of arrhythmias including atrial fibrillation and PVCs with bigeminy. His family reports that he has had bouts of SVT in the past I spoke with the patient's pit tanner at the [facility] in [place], Dr. Medina . This was at the recommendation of the on-call doc Dr. Hyde. Dr. Medina was concerned 10 days post procedure this fluid collection could represent a small abscess and suggested that the patient be admitted and receive IV antibiotics, suggesting Zosyn. There are no beds available at the [facility]. She requested that the patient be admitted here and observed with further consideration for transfer. However, on speaking with our hospitalist Dr. Snow, he does not feel comfortable managing this patient here and radiology believes that this lesion is too deep for safe percutaneous drainage here. I contacted the pit tanner at [facility], Dr. Colunga and he is not comfortable accepting in transfer as he does not do ERCP. This was also the case at [place] when I spoke with Dr. Walsh the pit tanner there. I subsequently discussed the case with Dr. Velez the pit tanner at /[facility]. He agrees that the patient should be admitted and continued on antibiotics and would be willing to accept the patient in transfer however no beds are available there either. He suggests that the patient should be admitted here continued on IV antibiotics and arrangements made to transfer the patient to the [facility] tomorrow or the next day when a bed is available. I again contacted Dr. Snow and explained the situation to him. He reluctantly agreed to admit the patient . I have entered some transition orders in [facility] and will continue him with IV fluids, keep him nothing by mouth and have ordered another dose of pain medication as needed. I had a discussion with the patient about his wishes in the event of cardiopulmonary or respiratory emergency and he says that he would like to receive resuscitation and/or intubation and ventilation if needed. Patient/family counseled. Old medical records reviewed. (from the [facility] in [place].). Disposition: Admitted. CLINICAL IMPRESSION Right upper quadrant and epigastric abdominal pain. Fever. intraabdominal fluid collection. (Electronically signed by Nirav Wheeler MD 07/29/2016 23:31) Addenda for VAL PEARCE Oralia VisitID: [id number] Date: 07/29/2016 07/30/2016 0:49 [facility] transport to inpatient (CCU) room via Nurse, on monitor, with oxygen. (Electronically signed by Khris Sunshine R.N. - 07/30/2016 0:49)
--- NOTE | 2016-07-29 23:03 | ED ORDER SUMMARY ---
..... Patient: VAL PEARCE OrderSheet [facility] VisitID: [id number] [place] [address] 81y, M Registration Date/Time: 07/29/2016 ORDER SHEET Weight: 80.2 kg (stated) Allergies: Gabapentin, Nortriptyline GENERAL ORDERS: Abd Series 2V Abd/1V Chest Urgent (12:07/29/2016 Tangela PETERSON) (Ack 12:12 LNations ER Tech1) (12:42 RMarsden R.N.) Comic Book Designer (Continuous) (12:07/29/2016 Tangela PETERSON) (Ack 12:11 LNations ER Tech1) (12:21 LNations ER Tech1) CBC w Diff Urgent (12:07/29/2016 Tangela PETERSON) (Ack 12:11 LNations ER Tech1) (12:42 RMarsden R.N.) CMP Urgent (12:07/29/2016 Tangela PETERSON) (Ack 12:11 LNations ER Tech1) (12:42 RMarsden R.N.) UA-Culture if indicated Urgent (12:07/29/2016 Tangela PETERSON) (Ack 12:11 LNations ER Tech1) (12:42 RMarsden R.N.) Amylase Urgent (12:07/29/2016 Tangela PETERSON) (Ack 12:11 LNations ER Tech1) (12:42 RMarsden R.N.) Lipase Urgent (12:07/29/2016 Tangela PETERSON) (Ack 12:11 LNations ER Tech1) (12:42 RMarsden R.N.) CPK Urgent (12:07/29/2016 Tangela PETERSON) (Ack 12:12 LNations ER Tech1) (12:42 RMarsden R.N.) Troponin-I Urgent (12:07/29/2016 Tangela PETERSON) (Ack 12:12 LNations ER Tech1) (12:42 RMarsden R.N.) Oxygen (2 L/min) (NC) (12:07/29/2016 Tangela PETERSON) (Ack 12:11 LNations ER Tech1) (12:21 LNations ER Tech1) Pulse oximeter (12:10 07/29/2016 Tangela PETERSON) (Ack 12:11 LNations ER Tech1) (12:21 LNations ER Tech1) EKG - ER Stat (12:10 07/29/2016 Tangela PETERSON) (Ack 12:11 LNations ER Tech1) (12:21 LNations ER Tech1) Blood Culture (No) (N/A) Urgent (12:38 07/29/2016 Tangela PETERSON) (12:42 RMarsden R.N.) Lactate, Serum Urgent (12:38 07/29/2016 Tangela PETERSON) (12:57 KHoerner) US Abdomen Limited (No) Urgent (15:00 07/29/2016 Tangela PETERSON) (Ack 15:05 KHoerner) (16:39 RMarsden R.N.) CTA Abdomen w Cont (No) (see report) Urgent (17:39 07/29/2016 Tangela PETERSON) (Ack 17:41 KHoerner) (Cancelled: Wrong Order17:47 ANDREAoerner) CTA Abdomen/Pelvis (No) (see report) Urgent (17:45 07/29/2016 ANDREAoerner verbal order read back to Tangela PETERSON) (Ack 17:47 ANDREAoerlucy) (19:30 [employer] ER Director Microbiology) Blood Culture (No) (N/A) Urgent (19:40 07/29/2016 Tangela PETERSON) (Ack 19:44 CHagerty ER Director Microbiology) (20:18 ALawrence ER Tech1) MEDICATION ORDERS: IV FLUIDS: Dilaudid IV 0.5 mg (HIGH ALERT MEDICATION, NOW) (12:09 07/29/2016 Tangela PETERSON) (13:02 RMarsden R.N.) Zofran IV 4 mg (NOW) (12:10 07/29/2016 Tangela PETERSON) (13:01 RMarsden R.N.) IV Saline Lock (12:07/29/2016 Tangela PETERSON) (12:43 RMarsden R.N.) IV NS : initial bolus 500 mL (1000 mL/hr), then 150 mL/hr for 4h (NOW); Urgent (12:10 07/29/2016 Tangela PETERSON) (12:58 RMarsden R.N.) Dilaudid IV 0.5 mg (HIGH ALERT MEDICATION, NOW) (16:25 07/29/2016 RMarsden R.N. verbal order read back to Tangela PETERSON) (Ack 16:26 RMarsden R.N.) (16:39 RMarsden R.N.) Verbal order read back and verified Zosyn IV 3.375 gm/50mL (NOW) (19:41 07/29/2016 Tangela PETERSON) (Ack 20:12 DDavis R.N.) (20:17 DDavis R.N.) Dilaudid IV 0.5 mg (HIGH ALERT MEDICATION, NOW) (23:16 07/29/2016 Tangela PETERSON) (23:21 DDavis R.N.) Dilaudid IV 1 mg (NOW) (23:54 07/29/2016 DDavis R.N. verbal order read back to Nusrat PETERSON) (0:07 DDavis R.N.) ORDER SHEET NOTES: [Electronically signed by Nirav Wheeler MD (23:31 07/29/2016)] [Electronically signed by Khris Sunshine R.N. (00:48 07/30/2016)] [Electronically locked/signed by Khris Sunshine R.N. (00:48 07/30/2016)]
--- NOTE | 2016-07-29 23:03 | ED ORDER SUMMARY ---
..... Patient: VAL PEARCE OrderSheet [facility] VisitID: [id number] [place] [address] 81y, M Registration Date/Time: 07/29/2016 ORDER SHEET Weight: 80.2 kg (stated) Allergies: Gabapentin, Nortriptyline GENERAL ORDERS: Abd Series 2V Abd/1V Chest Urgent (12:07/29/2016 Tangela PETERSON) (Ack 12:12 LNations ER Tech1) (12:42 RMarsden R.N.) Elementary School Librarian (Continuous) (12:07/29/2016 Tangela PETERSON) (Ack 12:11 LNations ER Tech1) (12:21 LNations ER Tech1) CBC w Diff Urgent (12:07/29/2016 Tangela PETERSON) (Ack 12:11 LNations ER Tech1) (12:42 RMarsden R.N.) CMP Urgent (12:07/29/2016 Tangela PETERSON) (Ack 12:11 LNations ER Tech1) (12:42 RMarsden R.N.) UA-Culture if indicated Urgent (12:07/29/2016 Tangela PETERSON) (Ack 12:11 LNations ER Tech1) (12:42 RMarsden R.N.) Amylase Urgent (12:07/29/2016 Tangela PETERSON) (Ack 12:11 LNations ER Tech1) (12:42 RMarsden R.N.) Lipase Urgent (12:07/29/2016 Tangela PETERSON) (Ack 12:11 LNations ER Tech1) (12:42 RMarsden R.N.) CPK Urgent (12:07/29/2016 Tangela PETERSON) (Ack 12:12 LNations ER Tech1) (12:42 RMarsden R.N.) Troponin-I Urgent (12:07/29/2016 Tangela PETERSON) (Ack 12:12 LNations ER Tech1) (12:42 RMarsden R.N.) Oxygen (2 L/min) (NC) (12:07/29/2016 Tangela PETERSON) (Ack 12:11 LNations ER Tech1) (12:21 LNations ER Tech1) Pulse oximeter (12:10 07/29/2016 Tangela PETERSON) (Ack 12:11 LNations ER Tech1) (12:21 LNations ER Tech1) EKG - ER Stat (12:10 07/29/2016 Tangela PETERSON) (Ack 12:11 LNations ER Tech1) (12:21 LNations ER Tech1) Blood Culture (No) (N/A) Urgent (12:38 07/29/2016 Tangela PETERSON) (12:42 RMarsden R.N.) Lactate, Serum Urgent (12:38 07/29/2016 Tangela PETERSON) (12:57 KHoerner) US Abdomen Limited (No) Urgent (15:00 07/29/2016 Tangela PETERSON) (Ack 15:05 KHoerner) (16:39 RMarsden R.N.) CTA Abdomen w Cont (No) (see report) Urgent (17:39 07/29/2016 Tangela PETERSON) (Ack 17:41 KHoerner) (Cancelled: Wrong Order17:47 ANDREAoerner) CTA Abdomen/Pelvis (No) (see report) Urgent (17:45 07/29/2016 ANDREAoerner verbal order read back to Tangela PETERSON) (Ack 17:47 ANDREAoerlucy) (19:30 1.618 [employer] ER [employer]) Blood Culture (No) (N/A) Urgent (19:40 07/29/2016 Tangela PETERSON) (Ack 19:44 CHagerty ER [employer]) (20:18 ALawrence ER Tech1) MEDICATION ORDERS: IV FLUIDS: Dilaudid IV 0.5 mg (HIGH ALERT MEDICATION, NOW) (12:09 07/29/2016 Tangela PETERSON) (13:02 RMarsden R.N.) Zofran IV 4 mg (NOW) (12:10 07/29/2016 Tangela PETERSON) (13:01 RMarsden R.N.) IV Saline Lock (12:07/29/2016 Tangela PETERSON) (12:43 RMarsden R.N.) IV NS : initial bolus 500 mL (1000 mL/hr), then 150 mL/hr for 4h (NOW); Urgent (12:10 07/29/2016 Tangela PETERSON) (12:58 RMarsden R.N.) Dilaudid IV 0.5 mg (HIGH ALERT MEDICATION, NOW) (16:25 07/29/2016 RMarsden R.N. verbal order read back to Tangela PETERSON) (Ack 16:26 RMarsden R.N.) (16:39 RMarsden R.N.) Verbal order read back and verified Zosyn IV 3.375 gm/50mL (NOW) (19:41 07/29/2016 Tangela PETERSON) (Ack 20:12 DDavis R.N.) (20:17 DDavis R.N.) Dilaudid IV 0.5 mg (HIGH ALERT MEDICATION, NOW) (23:16 07/29/2016 Tangela PETERSON) (23:21 DDavis R.N.) Dilaudid IV 1 mg (NOW) (23:54 07/29/2016 DDavis R.N. verbal order read back to Nusrat PETERSON) (0:07 DDavis R.N.) ORDER SHEET NOTES: [Electronically signed by Nirav Wheeler MD (23:31 07/29/2016)] [Electronically signed by Khris Sunshine R.N. (00:48 07/30/2016)] [Electronically locked/signed by Khris Sunshine R.N. (00:48 07/30/2016)]
[2016-07-30] VITALS (9 sets, daily range): BP systolic 99–160; BP diastolic 40–90
--- NOTE | 2016-07-30 00:01 | Progress Note ---
Subjective General Admission History and Physical Examination Patient Name: Jj Nguyen Admission Date: July 29, 2016 Primary Care Provider: [facility] Attending Physician: Mihai Snow M.D. Admitting Physician: Mihai Snow M.D. Code Status: FULL CODE Room: 306 SUBJECTIVE Historian: Patient and family Reliability: Good Chief Complaint: Abdominal pain History of Present Illness: The patient is a 81-year-old white male with a significant past medical history of hypertension, coronary artery disease, hyperlipidemia, recurrent pancreatitis , diabetes mellitus, gastroesophageal reflux, constipation, who presented to [facility] emergency department on the day of admission secondary to complaints of abdominal pain. [facility] ER evaluation was consistent with intra-abdominal fluid collection rule out abscess, biloma. Secondary to the above, the patient was admitted by Mihai Snow M.D. for further evaluation and treatment. The history of present illness began several days prior to admission when the patient developed epigastric right upper quadrant abdominal pain which radiated into the back. This occurred following replacement of pancreatic duct stent and removal of common bile duct stent. The patient was seen at [facility] emergency department 2 days prior to admission and was noted to have fluid collection in the right upper quadrant. No specific therapy was rendered at that time. The patient subsequently had increasing abdominal pain which grew severe on the day of admission. He presented to [facility] emergency department and was noted to have findings of low density area in the periportal region suggestive of biloma versus possible abscess. No beds were available at [facility] and the patient was admitted to [facility] with the above diagnoses for antimicrobial therapy and ongoing evaluation. PAST MEDICAL HISTORY Illnesses: 1. Hypertension 2. Gout 3. Hyperlipidemia 4. Recurrent pancreatitis 5. Diabetes mellitus 6. Gastroesophageal reflux 7. Coronary artery disease-status post CABG 8. Constipation 9. Peripheral arterial disease 10. Peripheral neuropathy Allergies: 1. Nortriptyline 2. Neurontin Medications: 1. Allopurinol 100 mg by mouth daily 2. Norvasc 10 mg by mouth daily 3. Lipitor 80 mg by mouth daily 4. Creon 6000 units 4 tablets by mouth twice a day 5. Lisinopril 40 mg by mouth every morning 6. Magnesium 420 mg 1 by mouth twice a day 7. Metformin 1000 mg by mouth twice a day 8. Methocarbamol 750 mg by mouth twice a day 9. Lopressor 25 mg by mouth twice a day 10. Prilosec 40 mg by mouth twice a day 11. Senna 8.6 mg 1 by mouth twice a day 12. Terazosin 5 mg by mouth daily at bedtime 13. Aspirin 81 mg by mouth daily 14. Colace 100 mg by mouth twice a day 15. Vicodin 5/325 one-2 by mouth twice a day 16. Latanoprost 0.005% 2 drops both eyes daily at bedtime Surgery: 1. CABG 2. Spinal surgery 4 3. Peripheral arterial disease Injuries: 1. 194, hand injury-table saw Hospitalizations: 1. For above surgery and medical problems FAMILY HISTORY Noncontributory SOCIAL HISTORY 1. Marital Status: 2. Methodist: Orthodox-Voodoo 3. Education: High school 4. 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 Occupational health exposures: Dust, asbestos, lead, mercury, loud noises, heavy lifting HABITS 1. Tobacco: Past use, stopped 1990 2. Drugs: None 3. Alcohol: None 4. Caffeine: Coffee-one cup per day HEALTH SUPERVISION Item/Test 1. Vision screen: 2016 2. Cholesterol Profile: 2015 3. PSA: Unknown 4. RAJAN: No recent 5. FOBT: Unknown 6. Blood Glucose: 2016 7. Colonoscopy: 2013 8. History and physical exam: 2015 9. Audiogram: Unknown 10. Mammogram: Not applicable 11. Pap/pelvic exam: Not applicable IMMUNIZATIONS: 1. Pneumococcal: 2014 2. Influenza: 2015 3. Tetanus: 2006 ADVANCED DIRECTIVES: 1. Living well: Yes 2. POLST: No 3. Code Status: FULL CODE 4. Durable Power Protective Signal Operations Supervisor Health care: Yes 5. Donor card: Yes REVIEW OF SYSTEMS Remarkable for those things stated in the history of present illness and past medical history. Seventeen point review of system completed with the following notable findings: General: Fatigue, pain Eyes: Decreased visual acuity requiring corrective lenses, history of cataracts Nose: Rhinorrhea Cardiovascular: Irregular heartbeat, ankle swelling, hypertension, heart murmur Genitourinary: Increased urination at night Gastrointestinal: Reflux, constipation, abdominal pain. Musculoskeletal: Back pain Blood and lymphatic: Anemia Endocrine: Diabetes mellitus Physical Exam Vital Signs / I&Os Vital Signs Date Time Temp Pulse Resp B/P Pulse O2 O2 Flow FiO2 Ox Delivery Rate 07/30 0609 118 16 140/59 Room Air 07/30 0555 98.4 118 24 160/90 94 Room Air 07/30 0300 98.2 57 11 120/49 99 Nasal 1.5 Cannula 07/30 0259 1.5 07/30 0130 Nasal 1.5 Cannula 07/30 0047 96 Nasal 1.5 Cannula 07/30 0045 99.7 60 12 132/57 88 Room Air General Appearance Alert, Oriented X3, Cooperative, No acute distress HEENT Atraumatic, PERRLA, EOMI, Moist mucous membranes Lungs Clear to auscultation, Normal air movement Neck Supple, No JVD, (R) carotid bruit Cardiovascular Normal S1 and S2, No rubs or gallops. Grade 1/6 systolic murmur. Irregular rhythm. Abdomen Normal bowel sounds, diffuse tenderness most severe epigastric/RUQ Extremities No cyanosis, No clubbing, 2-3+ ankle edema, bilaterally. Neurological Cranial nerves intact, No lateralizing signs Psych/Mental Status Mental status normal, Mood normal LAB Results Laboratory Tests 07/29 07/29 07/29 1251 1228 1156 Chemistry Plasma Sodium (136 - 145 mmol/L) 139 Plasma Potassium (3.5 - 5.1 mmol/L) 4.0 Plasma Chloride (98 - 107 mmol/L) 102 CO2 (Enzymatic) (21 - 32 mmol/L) 24 BUN (7 - 18 mg/dL) 18 Creatinine (0.6 - 1.3 mg/dL) 1.0 Est GFR ( Amer) (mL/min) >60 Est GFR (Non-Af Amer) (mL/min) >60 Glucose (70 - 110 mg/dL) 188 Lactic Acid (0.4 - 2.0 mmol/L) 2.2 Plasma Calcium (8.5 - 10.1 mg/dL) 8.8 Total Bilirubin (0.0 - 1.0 mg/dL) 0.4 AST (15 - 37 U/L) 13 ALT (12 - 78 U/L) 13 Alkaline Phosphatase (46 - 116 U/L) 76 Creatine Kinase (24 - 260 U/L) 38 Troponin (0.00 - 1.5 ng/mL) <0.05 Total Protein (6.4 - 8.2 g/dL) 6.7 Albumin (3.3 - 5.0 g/dL) 2.7 Amylase (25 - 115 U/L) 37 Lipase (73 - 393 U/L) 31 Hematology WBC (4.5 - 11.5 K/uL) 4.0 RBC (4.50 - 5.90 M/uL) 3.53 Hgb (13.5 - 17.5 gm/dL) 10.9 Hct (41.0 - 53.0 %) 32.6 MCV (80 - 100 fL) 92 MCH (26 - 34 pg) 31 RDW (11.6 - 14.8 %) 13.9 Neut % (Auto) (50 - 75 %) 82 Lymph % (Auto) (25 - 40 %) 9 [place] % (Auto) (3 - 14 %) 4 Eos % (Auto) (0 - 4 %) 1 Baso % (Auto) (0 - 2 %) 0 Band Neutrophils % (0 - 8 %) 4 Metamyelocytes % (0 - 1 %) 0 Myelocytes (0 - 1 %) 0 Other Cell Type 0 Plt Count, EDTA (150 - 400 K/uL) 135 RBC Morphology (76338 A) NORMOCYTIC PUBS MCHC (31 - 37 g/dL) 34 Urines Urine Color YELLOW Urine Appearance CLEAR Urine pH (5.0 - 8.0) 5.5 Ur Specific [place] (1.010 - 1.030) 1.025 Urine Protein (NEGATIVE) 2+ Urine Ketones (NEGATIVE) NEGATIVE Urine Blood (NEGATIVE) NEGATIVE Urine Nitrite (NEGATIVE) NEGATIVE Urine Bilirubin (NEGATIVE) NEGATIVE Urine Urobilinogen (0.2 - 1.0 EU/dL) 0.2 Ur Leukocyte Esterase (NEGATIVE) NEGATIVE Urine RBC (0 - 1 rbc/hpf) 0-1 Urine WBC (0 - 1 wbc/hpf) 3-5 Ur Epithelial Cells (0 - 5 EPI/hpf) 1-3 Urine Bacteria (NONE SEEN) FEW (1+) Urine Glucose (NEGATIVE) TRACE Urine Comment CULT NOT INDICATED 07/29 1130 Hematology Neut % (Auto) Cancelled Lymph % (Auto) Cancelled [place] % (Auto) Cancelled Band Neutrophils % Cancelled Microbiology Date/Time Procedure - Status Source Growth 07/29 1954 Blood Culture - RECD BLOOD 07/29 1950 Blood Culture - RECD BLOOD 07/29 1251 Blood Culture - RECD BLOOD 07/29 1235 Blood Culture - RECD BLOOD Imaging Abdominal Ultrasound: IMPRESSION: 1. Mild chronic distention of the gallbladder. No evidence of gallstones. 2. Findings discussed with Dr. Nirav Wheeler Dictated by: JAVI DUMAS MD D: TANGELA;07/29/[address] Scan Abdomen/Pelvis IMPRESSION: AORTA AND PELVIC VESSELS: 1. 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 2. Marked calcified atheromatous change of the celiac origin with probable 70% narrowing. 3. Mild calcified atheromatous changes of the superior mesenteric artery. 4. Findings suggest a 40% stenosis of the right renal artery with 60% stenosis of the left renal artery. 5. Marked calcified atheromatous changes of the iliac vessels with 50 - 80% stenoses in the right iliac arteries and 80-90% stenoses in the left iliac vessels. 6. 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 7. Vascular evaluation is partially compromised due to marked calcified atheromatous changes. ABDOMEN AND PELVIS: 1. Interval removal of common duct stent. There is a 2.7 cm low density area in the region of the caudate lobe which could represent a residual or developing fluid collection (may be a sequela of stent removal). Developing abscess or necrotic mass might also be considered (less likely). 2. Interim repositioning of pancreatic duct stent (proximal stent protrudes through the mid pancreatic duct - - but no evidence of peripancreatic fluid collection). 3. Moderate stool throughout the colon. Consider obstipation. 4. Moderate enlargement prostate (6 cm). 5. Penile prosthesis with pelvic reservoir. Findings discussed with Dr. Nirav Wheeler. Dictated by: JAVI DUMAS MD D: TANGELA;07/29/161930 Addendum: Reportedly, common duct stent has been removed recently. In addition, there is a small amount of fluid in the gallbladder fossa (not mentioned in original report). As such, the 2.7 cm low density area in the periportal region may represent a localized biloma associated with biliary perforation/leak. Findings discussed with Dr. Nirav Wheeler. Addendum by: Javi Dumas MD Dictated by: JAVI DUMAS MD 30 Assessment and Plan Problem List 1. Abdominal pain Plan -Patient with severe abdominal pain -See below -Dilaudid when necessary -Toradol 1 dose this p.m. to see effects on abdominal pain -Plan transfer to [facility] when bed available 2. Intraabdominal fluid collection Plan -Patient with findings of intra-abdominal fluid collection. -Cannot rule out abscess/biloma -Plan transfer to [facility] when bed available -Antimicrobial therapy with Invanz 1 g IV daily -Monitor 3. Diabetes mellitus Status Chronic Onset Date Unknown Plan -Patient with long-standing history of diabetes mellitus -Insulin sliding scale -Check hemoglobin A1c -Monitor 4. Coronary artery disease Status Chronic Onset Date Unknown Plan -Stable -No complaints of chest pain -Monitor -Continue outpatient medical regimen 5. Hypertension Status Chronic Onset Date Unknown Plan -Patient with long-standing history of hypertension -Blood pressure well controlled at 132/57 mmHg -Continue outpatient medical regimen -Monitor -Low-salt diet 6. Anemia Status Chronic Onset Date Unknown Plan -The patient presents with findings of anemia. -Patient with findings of pancytopenia -Recent bone marrow biopsy/aspiration showed no significant abnormalities -Monitor -Check iron studies, B12, folate Current status: Fair, unstable Anticipated discharge date: Anticipated discharge in 1-2 days to [facility] Anticipated discharge placement: [facility] Patient care time: Time spent in chart review, patient interview, physical exam, CPOE, and care documentation: 70 minutes Visit to patient today: 1 Complexity of care: High Initial patient evaluation: Emergency department E&M Codes Admission: Inpt-High/[id number]
--- NOTE | 2016-07-30 00:01 | Progress Note ---
Subjective General Admission History and Physical Examination Patient Name: Jj Nguyen Admission Date: July 29, 2016 Primary Care Provider: [facility] Attending Physician: Mihai Snow M.D. Admitting Physician: Mihai Snow M.D. Code Status: FULL CODE Room: 306 SUBJECTIVE Historian: Patient and family Reliability: Good Chief Complaint: Abdominal pain History of Present Illness: The patient is a 81-year-old white male with a significant past medical history of hypertension, coronary artery disease, hyperlipidemia, recurrent pancreatitis , diabetes mellitus, gastroesophageal reflux, constipation, who presented to [facility] emergency department on the day of admission secondary to complaints of abdominal pain. [facility] ER evaluation was consistent with intra-abdominal fluid collection rule out abscess, biloma. Secondary to the above, the patient was admitted by Mihai Snow M.D. for further evaluation and treatment. The history of present illness began several days prior to admission when the patient developed epigastric right upper quadrant abdominal pain which radiated into the back. This occurred following replacement of pancreatic duct stent and removal of common bile duct stent. The patient was seen at [facility] emergency department 2 days prior to admission and was noted to have fluid collection in the right upper quadrant. No specific therapy was rendered at that time. The patient subsequently had increasing abdominal pain which grew severe on the day of admission. He presented to [facility] emergency department and was noted to have findings of low density area in the periportal region suggestive of biloma versus possible abscess. No beds were available at [facility] and the patient was admitted to [facility] with the above diagnoses for antimicrobial therapy and ongoing evaluation. PAST MEDICAL HISTORY Illnesses: 1. Hypertension 2. Gout 3. Hyperlipidemia 4. Recurrent pancreatitis 5. Diabetes mellitus 6. Gastroesophageal reflux 7. Coronary artery disease-status post CABG 8. Constipation 9. Peripheral arterial disease 10. Peripheral neuropathy Allergies: 1. Nortriptyline 2. Neurontin Medications: 1. Allopurinol 100 mg by mouth daily 2. Norvasc 10 mg by mouth daily 3. Lipitor 80 mg by mouth daily 4. Creon 6000 units 4 tablets by mouth twice a day 5. Lisinopril 40 mg by mouth every morning 6. Magnesium 420 mg 1 by mouth twice a day 7. Metformin 1000 mg by mouth twice a day 8. Methocarbamol 750 mg by mouth twice a day 9. Lopressor 25 mg by mouth twice a day 10. Prilosec 40 mg by mouth twice a day 11. Senna 8.6 mg 1 by mouth twice a day 12. Terazosin 5 mg by mouth daily at bedtime 13. Aspirin 81 mg by mouth daily 14. Colace 100 mg by mouth twice a day 15. Vicodin 5/325 one-2 by mouth twice a day 16. Latanoprost 0.005% 2 drops both eyes daily at bedtime Surgery: 1. CABG 2. Spinal surgery 4 3. Peripheral arterial disease Injuries: 1. 194, hand injury-table saw Hospitalizations: 1. For above surgery and medical problems FAMILY HISTORY Noncontributory SOCIAL HISTORY 1. Marital Status: 2. Episcopal: Alevism-Hindu 3. Education: High school 4. 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 Occupational health exposures: Dust, asbestos, lead, mercury, loud noises, heavy lifting HABITS 1. Tobacco: Past use, stopped 1990 2. Drugs: None 3. Alcohol: None 4. Caffeine: Coffee-one cup per day HEALTH SUPERVISION Item/Test 1. Vision screen: 2016 2. Cholesterol Profile: 2015 3. PSA: Unknown 4. RAJAN: No recent 5. FOBT: Unknown 6. Blood Glucose: 2016 7. Colonoscopy: 2013 8. History and physical exam: 2015 9. Audiogram: Unknown 10. Mammogram: Not applicable 11. Pap/pelvic exam: Not applicable IMMUNIZATIONS: 1. Pneumococcal: 2014 2. Influenza: 2015 3. Tetanus: 2006 ADVANCED DIRECTIVES: 1. Living well: Yes 2. POLST: No 3. Code Status: FULL CODE 4. Durable Power Student [employer] Dean Health care: Yes 5. Donor card: Yes REVIEW OF SYSTEMS Remarkable for those things stated in the history of present illness and past medical history. Seventeen point review of system completed with the following notable findings: General: Fatigue, pain Eyes: Decreased visual acuity requiring corrective lenses, history of cataracts Nose: Rhinorrhea Cardiovascular: Irregular heartbeat, ankle swelling, hypertension, heart murmur Genitourinary: Increased urination at night Gastrointestinal: Reflux, constipation, abdominal pain. Musculoskeletal: Back pain Blood and lymphatic: Anemia Endocrine: Diabetes mellitus Physical Exam Vital Signs / I&Os Vital Signs Date Time Temp Pulse Resp B/P Pulse O2 O2 Flow FiO2 Ox Delivery Rate 07/30 0609 118 16 140/59 Room Air 07/30 0555 98.4 118 24 160/90 94 Room Air 07/30 0300 98.2 57 11 120/49 99 Nasal 1.5 Cannula 07/30 0259 1.5 07/30 0130 Nasal 1.5 Cannula 07/30 0047 96 Nasal 1.5 Cannula 07/30 0045 99.7 60 12 132/57 88 Room Air General Appearance Alert, Oriented X3, Cooperative, No acute distress HEENT Atraumatic, PERRLA, EOMI, Moist mucous membranes Lungs Clear to auscultation, Normal air movement Neck Supple, No JVD, (R) carotid bruit Cardiovascular Normal S1 and S2, No rubs or gallops. Grade 1/6 systolic murmur. Irregular rhythm. Abdomen Normal bowel sounds, diffuse tenderness most severe epigastric/RUQ Extremities No cyanosis, No clubbing, 2-3+ ankle edema, bilaterally. Neurological Cranial nerves intact, No lateralizing signs Psych/Mental Status Mental status normal, Mood normal LAB Results Laboratory Tests 07/29 07/29 07/29 1251 1228 1156 Chemistry Plasma Sodium (136 - 145 mmol/L) 139 Plasma Potassium (3.5 - 5.1 mmol/L) 4.0 Plasma Chloride (98 - 107 mmol/L) 102 CO2 (Enzymatic) (21 - 32 mmol/L) 24 BUN (7 - 18 mg/dL) 18 Creatinine (0.6 - 1.3 mg/dL) 1.0 Est GFR ( Amer) (mL/min) >60 Est GFR (Non-Af Amer) (mL/min) >60 Glucose (70 - 110 mg/dL) 188 Lactic Acid (0.4 - 2.0 mmol/L) 2.2 Plasma Calcium (8.5 - 10.1 mg/dL) 8.8 Total Bilirubin (0.0 - 1.0 mg/dL) 0.4 AST (15 - 37 U/L) 13 ALT (12 - 78 U/L) 13 Alkaline Phosphatase (46 - 116 U/L) 76 Creatine Kinase (24 - 260 U/L) 38 Troponin (0.00 - 1.5 ng/mL) <0.05 Total Protein (6.4 - 8.2 g/dL) 6.7 Albumin (3.3 - 5.0 g/dL) 2.7 Amylase (25 - 115 U/L) 37 Lipase (73 - 393 U/L) 31 Hematology WBC (4.5 - 11.5 K/uL) 4.0 RBC (4.50 - 5.90 M/uL) 3.53 Hgb (13.5 - 17.5 gm/dL) 10.9 Hct (41.0 - 53.0 %) 32.6 MCV (80 - 100 fL) 92 MCH (26 - 34 pg) 31 RDW (11.6 - 14.8 %) 13.9 Neut % (Auto) (50 - 75 %) 82 Lymph % (Auto) (25 - 40 %) 9 [place] % (Auto) (3 - 14 %) 4 Eos % (Auto) (0 - 4 %) 1 Baso % (Auto) (0 - 2 %) 0 Band Neutrophils % (0 - 8 %) 4 Metamyelocytes % (0 - 1 %) 0 Myelocytes (0 - 1 %) 0 Other Cell Type 0 Plt Count, EDTA (150 - 400 K/uL) 135 RBC Morphology (36141 A) NORMOCYTIC PUBS MCHC (31 - 37 g/dL) 34 Urines Urine Color YELLOW Urine Appearance CLEAR Urine pH (5.0 - 8.0) 5.5 Ur Specific [place] (1.010 - 1.030) 1.025 Urine Protein (NEGATIVE) 2+ Urine Ketones (NEGATIVE) NEGATIVE Urine Blood (NEGATIVE) NEGATIVE Urine Nitrite (NEGATIVE) NEGATIVE Urine Bilirubin (NEGATIVE) NEGATIVE Urine Urobilinogen (0.2 - 1.0 EU/dL) 0.2 Ur Leukocyte Esterase (NEGATIVE) NEGATIVE Urine RBC (0 - 1 rbc/hpf) 0-1 Urine WBC (0 - 1 wbc/hpf) 3-5 Ur Epithelial Cells (0 - 5 EPI/hpf) 1-3 Urine Bacteria (NONE SEEN) FEW (1+) Urine Glucose (NEGATIVE) TRACE Urine Comment CULT NOT INDICATED 07/29 1130 Hematology Neut % (Auto) Cancelled Lymph % (Auto) Cancelled [place] % (Auto) Cancelled Band Neutrophils % Cancelled Microbiology Date/Time Procedure - Status Source Growth 07/29 1954 Blood Culture - RECD BLOOD 07/29 1950 Blood Culture - RECD BLOOD 07/29 1251 Blood Culture - RECD BLOOD 07/29 1235 Blood Culture - RECD BLOOD Imaging Abdominal Ultrasound: IMPRESSION: 1. Mild chronic distention of the gallbladder. No evidence of gallstones. 2. Findings discussed with Dr. Nirav Wheeler Dictated by: JAVI DUMAS MD D: TANGELA;07/29/[address] Scan Abdomen/Pelvis IMPRESSION: AORTA AND PELVIC VESSELS: 1. 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 2. Marked calcified atheromatous change of the celiac origin with probable 70% narrowing. 3. Mild calcified atheromatous changes of the superior mesenteric artery. 4. Findings suggest a 40% stenosis of the right renal artery with 60% stenosis of the left renal artery. 5. Marked calcified atheromatous changes of the iliac vessels with 50 - 80% stenoses in the right iliac arteries and 80-90% stenoses in the left iliac vessels. 6. 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 7. Vascular evaluation is partially compromised due to marked calcified atheromatous changes. ABDOMEN AND PELVIS: 1. Interval removal of common duct stent. There is a 2.7 cm low density area in the region of the caudate lobe which could represent a residual or developing fluid collection (may be a sequela of stent removal). Developing abscess or necrotic mass might also be considered (less likely). 2. Interim repositioning of pancreatic duct stent (proximal stent protrudes through the mid pancreatic duct - - but no evidence of peripancreatic fluid collection). 3. Moderate stool throughout the colon. Consider obstipation. 4. Moderate enlargement prostate (6 cm). 5. Penile prosthesis with pelvic reservoir. Findings discussed with Dr. Nirav Wheeler. Dictated by: JAVI DUMAS MD D: TANGELA;07/29/161930 Addendum: Reportedly, common duct stent has been removed recently. In addition, there is a small amount of fluid in the gallbladder fossa (not mentioned in original report). As such, the 2.7 cm low density area in the periportal region may represent a localized biloma associated with biliary perforation/leak. Findings discussed with Dr. Nirav Wheeler. Addendum by: Javi Dumas MD Dictated by: JAVI DUMAS MD 30 Assessment and Plan Problem List 1. Abdominal pain Plan -Patient with severe abdominal pain -See below -Dilaudid when necessary -Toradol 1 dose this p.m. to see effects on abdominal pain -Plan transfer to [facility] when bed available 2. Intraabdominal fluid collection Plan -Patient with findings of intra-abdominal fluid collection. -Cannot rule out abscess/biloma -Plan transfer to [facility] when bed available -Antimicrobial therapy with Invanz 1 g IV daily -Monitor 3. Diabetes mellitus Status Chronic Onset Date Unknown Plan -Patient with long-standing history of diabetes mellitus -Insulin sliding scale -Check hemoglobin A1c -Monitor 4. Coronary artery disease Status Chronic Onset Date Unknown Plan -Stable -No complaints of chest pain -Monitor -Continue outpatient medical regimen 5. Hypertension Status Chronic Onset Date Unknown Plan -Patient with long-standing history of hypertension -Blood pressure well controlled at 132/57 mmHg -Continue outpatient medical regimen -Monitor -Low-salt diet 6. Anemia Status Chronic Onset Date Unknown Plan -The patient presents with findings of anemia. -Patient with findings of pancytopenia -Recent bone marrow biopsy/aspiration showed no significant abnormalities -Monitor -Check iron studies, B12, folate Current status: Fair, unstable Anticipated discharge date: Anticipated discharge in 1-2 days to [facility] Anticipated discharge placement: [facility] Patient care time: Time spent in chart review, patient interview, physical exam, CPOE, and care documentation: 70 minutes Visit to patient today: 1 Complexity of care: High Initial patient evaluation: Emergency department E&M Codes Admission: Inpt-High/[id number]
--- NOTE | 2016-07-30 00:50 | NUR ---
NEW ADMIT FROM ED AT 0045. PT BROUGHT UP VIA STRETCHER BY ED RN. NO DISTRESS NOTED. PT'S FAMILY AT BEDSIDE. PT ABLE TO STAND AND WALK TO BED, TOLERATED FAIR. PT C/O 8/ ABD PAIN, PT DECLINED IV PAIN MEDICATION AT THIS TIME. INFORMED PATIENT IT IS IMPORTANT TO KEEP HIS PAIN UNDER CONTROL. BED IN LOWEST POSITION, CALL LIGHT IN REACH WCTM.
--- NOTE | 2016-07-30 00:50 | ED MAR SUMMARY ---
..... Medication Administration Record [facility] [address] [place] [address] Patient: VAL PEARCE Visit ID: [id number] 81y, M Weight: 80.2 kg Height/Length: 75 in BMI: 22.1 ALLERGIES: Gabapentin, Nortriptyline Given 12:55 07/29/2016 Bre Gonzalez R.N. Medication Administered: ZOFRAN [IVP] (ONDANSETRON HCL), Dose: 4 mg IVP over 2 minute(s), Site: #1 right forearm. Medication Ordered: Zofran IV 4 mg (NOW). Given 12:57 07/29/2016 Bre Gonzalez R.N. Medication Administered: DILAUDID [IVP] (HYDROMORPHONE HCL PF), Dose: 0.5 mg IVP over 1 minute(s), Site: #1 right forearm. Medication Ordered: Dilaudid IV 0.5 mg (HIGH ALERT MEDICATION, NOW). Start 12:58 07/29/2016 Bre Gonzalez R.N., Stop 00:45 07/30/2016 Khris Sunshine R.N. Medication Administered: IV NS (SALINE), Dose: IV Fluids, Bolus: 1000 mL over 30 minute(s), Dispensed: 1000 mL bag, Site: #1 right forearm. Medication Ordered: IV NS : initial bolus 500 mL (1000 mL/hr), then 150 mL/hr for 4h (NOW); Urgent. Given 16:29 07/29/2016 Bre Gonzalez R.N. Medication Administered: DILAUDID [IVP] (HYDROMORPHONE HCL PF), Dose: 0.5 mg IVP over 1 minute(s), Site: #1 right forearm. Medication Ordered: Dilaudid IV 0.5 mg (HIGH ALERT MEDICATION, NOW). Start 20:17 07/29/2016 Khris Sunshine R.N., Stop 20:47 07/29/2016 Khris Sunshine R.N. Medication Administered: ZOSYN [IVPB] (PIPERACILLIN SOD-TAZOBACTAM SO), Dose: 3.375 gm IVPB over 30 minute(s), Rate: 100 mL/hr, Dispensed: 50 mL bag, Site: #1 right forearm. Medication Ordered: Zosyn IV 3.375 gm/50mL (NOW). Given 23:19 07/29/2016 Khris Sunshine R.N. Medication Administered: DILAUDID [IVP] (HYDROMORPHONE HCL PF), Dose: 0.5 mg IVP over 2 minute(s), Site: #1 right forearm. Medication Ordered: Dilaudid IV 0.5 mg (HIGH ALERT MEDICATION, NOW). Given 00:04 07/30/2016 Khris Sunshine R.N. Medication Administered: DILAUDID [IVP] (HYDROMORPHONE HCL PF), Dose: 1 mg IVP over 2 minute(s), Site: #1 right forearm. Medication Ordered: Dilaudid IV 1 mg (NOW).
--- NOTE | 2016-07-30 00:50 | ED MED RECONCILIATION SUMMARY ---
Patient: VAL PEARCE Medication Reconciliation Report [facility] VisitID: [id number] [address] [place] [address] 81y, M Registration Date/Time: 07/29/2016 Weight: 80.2 kg Height/Length: 75 in. BMI: 22.1 ALLERGIES: Gabapentin, Nortriptyline The patient's Home Medications are listed below: THE FOLLOWING MEDICATIONS NEED TO BE RECONCILED: Acetaminophen Oral Allopurinol Oral AmLODIPine Besylate Oral Aspirin Low Dose Oral Atorvastatin Calcium Oral Satya Mag Zinc +D3 Oral Creon Oral (6000 unit) 4 capsules, daily Fish Oil Oral Flaxseed Oil Oral (1200 mg) 1 capsule, daily Glucosamine Chondroitin Complx Oral 1 tablet, 2x daily Hydrocodone-Acetaminophen Oral Latanoprost Ophthalmic (0.005 %) Lisinopril Oral Magnesium Oral MetFORMIN HCl Oral Methocarbamol Oral Multiple Vitamins Oral Omeprazole Oral PreserVision AREDS Oral 1 caplet, 2x daily Senna Lax Oral (8.6 mg) 1 tablet, 2x daily TERAZOSIN HCl Oral Tramadol HCL Oral 50 mg The source(s) of the original Home Medication information: Not obtained. The following Medications were given to the patient in the Emergency Department: IV NS IV Fluids bolus 1000 mL over 30 minute(s), administered: 07/29/2016 12:58:00 PM Zofran [IVP] IVP 4 mg, administered: 07/29/2016 12:55:00 PM Dilaudid [IVP] IVP 0.5 mg, administered: 07/29/2016 12:57:00 PM Dilaudid [IVP] IVP 0.5 mg, administered: 07/29/2016 4:29:00 PM Zosyn [IVPB] IVPB bolus 0, then 3.375 gm 100 mL/hr, administered: 07/29/2016 8:17:00 PM Dilaudid [IVP] IVP 0.5 mg, administered: 07/29/2016 11:19:00 PM Dilaudid [IVP] IVP 1 mg, administered: 07/30/2016 12:04:00 AM The following Medications were prescribed to the patient: None.
--- NOTE | 2016-07-30 00:50 | ED MED RECONCILIATION SUMMARY ---
Patient: VAL PEARCE Medication Reconciliation Report [facility] VisitID: [id number] [address] [place] [address] 81y, M Registration Date/Time: 07/29/2016 Weight: 80.2 kg Height/Length: 75 in. BMI: 22.1 ALLERGIES: Gabapentin, Nortriptyline The patient's Home Medications are listed below: THE FOLLOWING MEDICATIONS NEED TO BE RECONCILED: Acetaminophen Oral Allopurinol Oral AmLODIPine Besylate Oral Aspirin Low Dose Oral Atorvastatin Calcium Oral Satya Mag Zinc +D3 Oral Creon Oral (6000 unit) 4 capsules, daily Fish Oil Oral Flaxseed Oil Oral (1200 mg) 1 capsule, daily Glucosamine Chondroitin Complx Oral 1 tablet, 2x daily Hydrocodone-Acetaminophen Oral Latanoprost Ophthalmic (0.005 %) Lisinopril Oral Magnesium Oral MetFORMIN HCl Oral Methocarbamol Oral Multiple Vitamins Oral Omeprazole Oral PreserVision AREDS Oral 1 caplet, 2x daily Senna Lax Oral (8.6 mg) 1 tablet, 2x daily TERAZOSIN HCl Oral Tramadol HCL Oral 50 mg The source(s) of the original Home Medication information: Not obtained. The following Medications were given to the patient in the Emergency Department: IV NS IV Fluids bolus 1000 mL over 30 minute(s), administered: 07/29/2016 12:58:00 PM Zofran [IVP] IVP 4 mg, administered: 07/29/2016 12:55:00 PM Dilaudid [IVP] IVP 0.5 mg, administered: 07/29/2016 12:57:00 PM Dilaudid [IVP] IVP 0.5 mg, administered: 07/29/2016 4:29:00 PM Zosyn [IVPB] IVPB bolus 0, then 3.375 gm 100 mL/hr, administered: 07/29/2016 8:17:00 PM Dilaudid [IVP] IVP 0.5 mg, administered: 07/29/2016 11:19:00 PM Dilaudid [IVP] IVP 1 mg, administered: 07/30/2016 12:04:00 AM The following Medications were prescribed to the patient: None.
--- NOTE | 2016-07-30 00:50 | ED DISCHARGE INSTRUCTIONS ---
Patient: VAL PEARCE General Instructions [facility] VisitID: [id number] [address] [place] [address] 81y, M Registration Date/Time: 07/29/2016 Right upper quadrant and epigastric abdominal pain. Fever. intraabdominal fluid collection. (Electronically signed by Nirav Wheeler MD 07/29/2016 23:31)
--- NOTE | 2016-07-30 00:50 | ED DISCHARGE INSTRUCTIONS ---
Patient: VAL PEARCE General Instructions [facility] VisitID: [id number] [address] [place] [address] 81y, M Registration Date/Time: 07/29/2016 Right upper quadrant and epigastric abdominal pain. Fever. intraabdominal fluid collection. (Electronically signed by Nirav Wheeler MD 07/29/2016 23:31)
--- NOTE | 2016-07-30 00:50 | ED MAR SUMMARY ---
..... Medication Administration Record [facility] [address] [place] [address] Patient: VAL PEARCE Visit ID: [id number] 81y, M Weight: 80.2 kg Height/Length: 75 in BMI: 22.1 ALLERGIES: Gabapentin, Nortriptyline Given 12:55 07/29/2016 Bre Gonzalez R.N. Medication Administered: ZOFRAN [IVP] (ONDANSETRON HCL), Dose: 4 mg IVP over 2 minute(s), Site: #1 right forearm. Medication Ordered: Zofran IV 4 mg (NOW). Given 12:57 07/29/2016 Bre Gonzalez R.N. Medication Administered: DILAUDID [IVP] (HYDROMORPHONE HCL PF), Dose: 0.5 mg IVP over 1 minute(s), Site: #1 right forearm. Medication Ordered: Dilaudid IV 0.5 mg (HIGH ALERT MEDICATION, NOW). Start 12:58 07/29/2016 Bre Gonzalez R.N., Stop 00:45 07/30/2016 Khris Sunshine R.N. Medication Administered: IV NS (SALINE), Dose: IV Fluids, Bolus: 1000 mL over 30 minute(s), Dispensed: 1000 mL bag, Site: #1 right forearm. Medication Ordered: IV NS : initial bolus 500 mL (1000 mL/hr), then 150 mL/hr for 4h (NOW); Urgent. Given 16:29 07/29/2016 Bre Gonzalez R.N. Medication Administered: DILAUDID [IVP] (HYDROMORPHONE HCL PF), Dose: 0.5 mg IVP over 1 minute(s), Site: #1 right forearm. Medication Ordered: Dilaudid IV 0.5 mg (HIGH ALERT MEDICATION, NOW). Start 20:17 07/29/2016 Khris Sunshine R.N., Stop 20:47 07/29/2016 Khris Sunshine R.N. Medication Administered: ZOSYN [IVPB] (PIPERACILLIN SOD-TAZOBACTAM SO), Dose: 3.375 gm IVPB over 30 minute(s), Rate: 100 mL/hr, Dispensed: 50 mL bag, Site: #1 right forearm. Medication Ordered: Zosyn IV 3.375 gm/50mL (NOW). Given 23:19 07/29/2016 Khris Sunshine R.N. Medication Administered: DILAUDID [IVP] (HYDROMORPHONE HCL PF), Dose: 0.5 mg IVP over 2 minute(s), Site: #1 right forearm. Medication Ordered: Dilaudid IV 0.5 mg (HIGH ALERT MEDICATION, NOW). Given 00:04 07/30/2016 Khris Sunshine R.N. Medication Administered: DILAUDID [IVP] (HYDROMORPHONE HCL PF), Dose: 1 mg IVP over 2 minute(s), Site: #1 right forearm. Medication Ordered: Dilaudid IV 1 mg (NOW).
--- NOTE | 2016-07-30 01:48 | NUR ---
DR. DENG PAGED AND RETURNED CALL AT [phone]. RN CLARIFIED DIET ORDER. MD STATED PATIENT CAN HAVE SIPS OF WATER WITH PO MEDS, AND 1/2 CUP ICE CHIPS PER SHIFT. ORDER READ BACK AND WRITTEN IN CHART. WCTM
--- NOTE | 2016-07-30 04:07 | NUR ---
DR. DENG PAGED AT [phone]. PRESENT ON UNIT AT 1580. MD INFORMED THAT PATIENT IS UNABLE TO VOID, AND BLADDER SCAN SHOWED 663 ML. PLACED ORDER IN CPOE TO PLACE A RAMOS CATH. RAMOS CATH PLACED WITHOUT ANY ISSUES. URINE SAMPLE OBTAINED AND SENT TO LAB. [facility].
[2016-07-30] MEDS ORDERED: ALLOPURINOL100 MG PO (04:12)
[2016-07-30] MEDS ORDERED: LIPITOR80 MG PO (04:13)
[2016-07-30] MEDS ORDERED: AMLODIPINE BESY10 MG PO (04:13)
[2016-07-30] MEDS ORDERED: CREON6000 UNIT PO (04:14)
[2016-07-30] MEDS ORDERED: LISINOPRIL10 MG PO (04:14)
[2016-07-30] MEDS ORDERED: MAGNESIUM400 M1 PO (04:15)
[2016-07-30] MEDS ORDERED: METFORMIN HCL500 MG PO (04:16)
[2016-07-30] MEDS ORDERED: METHOCARBAMOL750 MG PO (04:16)
[2016-07-30] MEDS ORDERED: METOPROLOL TART25 MG PO (04:20)
[2016-07-30] MEDS ORDERED: OMEPRAZOLE40 MG PO (04:21)
[2016-07-30] MEDS ORDERED: PRESERVISION PO (04:22)
[2016-07-30] MEDS ORDERED: TERAZOSIN HCL1 MG PO (04:23)
[2016-07-30] MEDS ORDERED: SENNA LAXATIVE8.6 MG PO (04:23)
[2016-07-30] MEDS ORDERED: ACETAMINOPHEN500 MG PO (04:24)
[2016-07-30] MEDS ORDERED: ASPIRIN ADULT L81 MG PO (04:25)
[2016-07-30] MEDS ORDERED: MULTIPLE VITAMIN PO (04:26)
[2016-07-30] MEDS ORDERED: VITAMIN B-121000 MCG PO (04:26)
[2016-07-30] MEDS ORDERED: FLAXSEED PO (04:27)
[2016-07-30] MEDS ORDERED: CAL MAG ZINC (04:28)
[2016-07-30] MEDS ORDERED: GLUCOSAMINE CHONDROI PO (04:28)
[2016-07-30] MEDS ORDERED: NORCO1 TAB PO (04:29)
[2016-07-30] MEDS ORDERED: LATANOPROST0.005 % OP (04:30)
[2016-07-30] MEDS ORDERED: IPRATROPIUM BR0.02 % (04:32)
--- NOTE | 2016-07-30 18:27 | Progress Note ---
Subjective General Patient seen and examined. Patients pain is out of proportion to what is seen on the ct scan. Patient otherwise has no other complaints. Constitutional Malaise. Denies: Fever, Chills, Sweats, Weakness, Other. Eyes Denies: Pain, Vision Change, Conjunctival Inflammation, Eyelid Inflammation, Redness, Other. ENT Denies: Ear Pain, Ear Discharge, Nose Pain, Nasal Discharge, Nasal Congestion, Mouth Pain, Mouth Swelling, Throat Pain, Throat Swelling, Other. Respiratory Denies: Cough, Dry, SOB w/exertion, Wheezing, Hemoptysis, Pleuritic Pain, Sputum , Other. Cardiovascular Denies: Chest Pain, Palpitations, Orthopnea, PND, Edema, Light-headedness, Other. Gastrointestinal Nausea, Abdominal Pain. Denies: Vomiting, Diarrhea, Constipation, Melena, Hematochezia, Other. Genitourinary Denies: Dysuria, Frequency, Incontinence, Hematuria, Retention, Other. Musculoskeletal Denies: Neck Pain, Shoulder Pain, Arm Pain, Back Pain, Hand Pain, Leg Pain, Foot Pain, Other. Skin Denies: Rash, Lesions, Jaundice, Bruising, Other. Neurological Denies: Weakness, Numbness, Incoordination, Change in speech, Confusion, Seizures, Other. Physical Exam Vital Signs / I&Os Vital Signs Date Time Temp Pulse Resp B/P Pulse O2 O2 Flow FiO2 Ox Delivery Rate 07/30 1603 98.6 56 18 131/73 92 Nasal 1.5 Cannula 07/30 1207 98.6 52 18 99/48 95 Nasal 1.5 Cannula 07/30 1028 1.5 07/30 1004 Nasal 2.0 Cannula 07/30 0609 118 16 140/59 Room Air 07/30 0555 98.4 118 24 160/90 94 Room Air 07/30 0300 98.2 57 11 120/49 99 Nasal 1.5 Cannula 07/30 0259 1.5 07/30 0130 Nasal 1.5 Cannula 07/30 0047 96 Nasal 1.5 Cannula 07/30 0045 99.7 60 12 132/57 88 Room Air General Appearance Alert, Oriented X3, No acute distress HEENT Atraumatic, Moist mucous membranes Lungs Clear to auscultation Cardiovascular Regular rate and rhythm, No murmurs, gallops, rubs Abdomen Soft, - tenderness to RUQ and LLQ Extremities No clubbing, No edema, Normal pulses, Strength = upper ext's, Strength = lower ext's Skin No Breakdown, No Significant Lesions Neurological Normal speech, Normal tone, Cranial nerves intact, No lateralizing signs Psych/Mental Status Mood normal LAB Results Laboratory Tests 07/30 07/30 07/30 07/30 07/30 0715 0730 0730 0730 0730 Chemistry Plasma Sodium (136 - 145 mmol/L) 140 Plasma Potassium (3.5 - 5.1 mmol/L) 4.8 Plasma Chloride (98 - 107 mmol/L) 105 CO2 (Enzymatic) (21 - 32 mmol/L) 22 BUN (7 - 18 mg/dL) 27 Creatinine (0.6 - 1.3 mg/dL) 1.5 Est GFR ( Amer) (mL/min) 57.57 Est GFR (Non-Af Amer) (mL/min) 47.50 Glucose (70 - 110 mg/dL) 143 Hemoglobin A1c % (4.5 - 6.2 %) 6.9 Plasma Calcium (8.5 - 10.1 mg/dL) 8.3 Iron (35 - 150 ug/dL) 7 TIBC (260 - 445 ug/dL) 149 Iron Saturation (15 - 50 %) 5 Total Bilirubin (0.0 - 1.0 mg/dL) 0.4 AST (15 - 37 U/L) 14 ALT (12 - 78 U/L) 15 Alkaline Phosphatase (46 - 116 U/L) 66 Total Protein (6.4 - 8.2 g/dL) 6.1 Albumin (3.3 - 5.0 g/dL) 2.2 Triglycerides (30 - 200 mg/dL) Cancelled 30 Cholesterol (140 - 200 mg/dL) Cancelled 71 LDL Cholesterol, Calc (mg/dL) Cancelled 2 HDL Cholesterol (32 - 96 mg/dL) Cancelled 63 LDL/HDL Ratio Cancelled 0.0 Cholesterol/HDL Ratio Cancelled 1.1 Coronary Risk Interp (0.4 - 1.0) Cancelled < 0.4 Lipase (73 - 393 U/L) Cancelled 30 Vitamin B12 (211 - 946 pg/mL) 821 Folate (>3.0 ng/mL) 49.9 Procalcitonin (0 - 0.5 ng/mL) 14.9 Hematology WBC (4.5 - 11.5 K/uL) 12.1 RBC (4.50 - 5.90 M/uL) 2.62 Hgb (13.5 - 17.5 gm/dL) 8.2 Hct (41.0 - 53.0 %) 24.6 MCV (80 - 100 fL) 94 MCH (26 - 34 pg) 31 RDW (11.6 - 14.8 %) 14.0 Neut % (Auto) (50 - 75 %) 69 Lymph % (Auto) (25 - 40 %) 6 [place] % (Auto) (3 - 14 %) 3 Eos % (Auto) (0 - 4 %) 0 Baso % (Auto) (0 - 2 %) 0 Band Neutrophils % (0 - 8 %) 22 Metamyelocytes % (0 - 1 %) 0 Myelocytes (0 - 1 %) 0 Other Cell Type 0 Plt Count, EDTA (150 - 400 K/uL) 141 Poikilocytosis (manual 1+ Geovanny Cells 1+ PUBS MCHC (31 - 37 g/dL) 33 07/30 1350 Chemistry Lactic Acid (0.4 - 2.0 mmol/L) 1.0 Microbiology Date/Time Procedure - Status Source Growth 07/30 0400 MRSA Screen - RECD NASAL 07/29 1954 Blood Culture - RECD BLOOD 07/29 1950 Blood Culture - RECD BLOOD Assessment and Plan Problem List 1. Abdominal pain Plan -Dilaudid on board -Toradol 1 dose this p.m. to see effects on abdominal pain -Plan transfer to [facility] when bed available 2. Intraabdominal fluid collection Plan -Patient with findings of intra-abdominal fluid collection. -Cannot rule out abscess/biloma -Plan transfer to [facility] when bed available -Antimicrobial therapy with Invanz 1 g IV daily -Will continue to trend wbc 3. Diabetes mellitus Status Chronic Onset Date Unknown Plan -Patient with long-standing history of diabetes mellitus -Insulin sliding scale -HBa1c is 6.9 4. Coronary artery disease Status Chronic Onset Date Unknown Plan -Stable -No complaints of chest pain -EKG NSR 5. Hypertension Status Chronic Onset Date Unknown Plan -Patient with long-standing history of hypertension -Blood pressure well controlled at 132/57 mmHg -Continue outpatient medical regimen 6. Anemia Status Chronic Onset Date Unknown Plan - will continue to trend
--- NOTE | 2016-07-30 18:32 | NUR ---
MED X5 FOR C/O ABDOMINAL PAIN. ABDOMEN SOFT WITH HYPOACTIVE BTx4. TELE SHOWS SNIUS GRIFFIN WITH OCCASIONAL PVCS. RA SATS WHEN ASLEEP WERE IN HIGH 80S, SO PLACED ON 2LPM VIA NC AND NOW O2 SATS RUN 98-100%.
--- NOTE | 2016-07-30 20:34 | NUR ---
DR. DENG PRESENT ON UNIT. INFORMED OF PATIENT HR IN THE 40'S AND LOW 50'S. RN INFORMED MD THAT HS METOPROLOL WAS HELD. ALSO INFORMED THAT PATIENT WANTS TO KNOW WHY HE CAN'T EAT OR DRINK. ADVANCED PT'S DIET TO CLEAR LIQUIDS, PT INFORMED OF DIET AND CHANGE. WCTM.
--- NOTE | 2016-07-30 22:17 | NUR ---
PT C/O PAIN RQ. PRN DILAUDID GIVEN. PT GIVEN COMPLETED BED BATH, HAIR WASHED, LOTION APLLIED TO BODY. PT IS ALERT AND ORIENTED, COOPERATIVE WITH CARE. PT DENIES ANY CHEST PAIN, SOB, NAUSEA, AND VOMITING. VSS. [facility] PT IS ON TELE, SB TO SR WITH PVCS. BS HYPOACTIVE, ABD SLIGHTLY DISTENTED. IV INTACT IN THE RFA WITH IVF INFUSING PER MD ORDER. BED ALARM IS ON, CALL LIGHT IN REACH, WCTM.
--- NOTE | 2016-07-30 23:36 | NUR ---
REPORT GIVEN TO SUSAN LEOS. PT WILL BE TRANSFERED TO ROOM 210A. ALL QUESTIONS ANSWERED.
--- NOTE | 2016-07-30 23:59 | NUR ---
PT TRANSFERED IN WC DOWN TO ROOM 210A. ALL BELONINGS WITH PATIENT, CHART TAKEN. PT COOPERATIVE. NO DISTRESS NOTED.
[2016-07-31 03:03] VITALS: BP 119/58
[2016-07-31 07:07] VITALS: BP 131/64
[2016-07-31 10:25] VITALS: BP 116/59
--- NOTE | 2016-07-31 11:04 | NUR ---
1000- HR IN 40'S. PT IS ALERT ORIENTED, DENIES DIZZINESS, LIGHTHEADEDNESS, SOB. CALL LIGHT IN REACH. INSTRUCTED PT TO CALL IF FEELING DIZZY. VSS. PT APPEARS ASYMPTOMATIC SB C PVCS. NOTIFIED.
[2016-07-31 13:15] VITALS: BP 98/48
--- NOTE | 2016-07-31 13:36 | NUR ---
1330- report called to [facility], 6W, DERIC Pelaez taking patient. given call back number if any further questions.
--- NOTE | 2016-07-31 13:48 | Provider's Discharge Care Plan ---
Problem, Goal, Plan Problem List 1. Abdominal pain Instructions: - secondary to abdominal fluid collection - pain is improving with current regimen 2. Intraabdominal fluid collection Instructions: - most likely secondary to biliary tract and pancreatic tract manipulation - will transfer to community relations director who performed the procedure 3. Hypertension Instructions: Take meds as directed 4. Coronary artery disease Instructions: Take meds as directed 5. Anemia Instructions: - evidence of anemia with no identifiable cause - continue to trend hbg 6. Diabetes mellitus Instructions: - take meds once diet is restarted
--- NOTE | 2016-07-31 13:48 | Provider's Discharge Care Plan ---
Problem, Goal, Plan Problem List 1. Abdominal pain Instructions: - secondary to abdominal fluid collection - pain is improving with current regimen 2. Intraabdominal fluid collection Instructions: - most likely secondary to biliary tract and pancreatic tract manipulation - will transfer to time clock mechanic who performed the procedure 3. Hypertension Instructions: Take meds as directed 4. Coronary artery disease Instructions: Take meds as directed 5. Anemia Instructions: - evidence of anemia with no identifiable cause - continue to trend hbg 6. Diabetes mellitus Instructions: - take meds once diet is restarted
--- NOTE | 2016-07-31 14:33 | Discharge Summary ---
Discharge Summary Report Admit Date 07/29/16 Discharge Date 07/31/16 Admission Diagnosis abdominal pain Discharge Diagnosis abdominal pain secondary to fluid collection Brief History please refer to admission H&P Hospital Course Patient was admitted for the fluid collection found on the ct scan of the patient. Patient was treated with IV antibioitics and provided with pain control. Patient was examined for the past two days and his lfts were trended as well as his cbc. Patient did not have any lab aberration that would suggest compromised biliary or pancreatic duct drainage, additionally patient did not have any elevation in his lfts. Patient was seen to have an increase in his wbc and a decrease in his hgb. Patients pain decreased however he was persistenly tender. Patient additionally did not have an evidence of acute blood loss from his GI tract or superficial evidence of blood loss, thus it might be prudent to do additional imaging. Otherwise patient is stable for transfer and will be transferred shortly. General Appearance Alert, Oriented X3, No acute distress HEENT PERRLA, Mucous membran moist/pink Lungs Normal air movement Cardiovascular Normal S1, Normal S2, No murmurs Abdomen Soft, No hepatospenomegaly Skin No Breakdown, No Significant Lesions Neurological Normal speech, Normal tone, Cranial nerves 3-12 NL Discharge Instructions/Meds - transferring patient to the OR
--- NOTE | 2016-07-31 14:41 | NUR ---
1440- REPORT GIVEN TO AMBULANCE RN. PT IS STABLE. INFUSION RN WAS GIVEN PACKET AND HE REVIEWED CONTENTS PRIOR TO TRANSFER. PT LEFT BY AMBULANCE TO [facility] [place]
== END 2016-07-31 14:45 | disposition short-term general hospital (02) | DRG 393 ==
LOC: ED SRH 11:35 → TRANS SRH 23:09 → ACUTE2 SRH 23:09 → CC SRH 07-30 00:45 → ACUTE2 SRH 07-31 00:01
PROVIDERS: ADMIT Internal Medicine
DX: K91.89 Other postprocedural complications and disorders of digestive system (principal); K83.8 Other specified diseases of biliary tract; K65.1 Peritoneal abscess; R50.81 Fever presenting with conditions classified elsewhere; I10 Essential (primary) hypertension; Z96.89 Presence of other specified functional implants; E11.42 Type 2 diabetes mellitus with diabetic polyneuropathy; Z79.84 Long term (current) use of oral hypoglycemic drugs